=== PATIENT | female | born 1990 | race Caucasian/White ===

== ENCOUNTER 2018-10-06 19:35 | Emergency (ER) | payer MEDICAID, SELFPAY ==
[2018-10-06 19:36] VITALS: BP 126/80; PULSE 87; PULSE 88; RESP 17; TEMP 36.5; O2SAT 98; O2SAT 99; BMI 40.9
--- NOTE | 2018-10-06 20:11 | ED.VISSUMM ---
- ER Visit Summary Date of Service: 10/06/18 Chief Complaint: Medication refill History of Present Illness: The patient is a 28 F who is been out of her venlafaxine for the past 3 or 4 days. She called the counseling center yesterday for refill. She complains only of headache at this time. Physical Examination: Vital signs are unremarkable. Patient sitting upright in bed no acute distress. Heart is regular rate and rhythm. Lung sounds are clear. Abdomen is soft nontender. Patient is alert and appropriate. Test Results: [] Emergency Department Course and Treatment: Patient is currently on 225 mg of venlafaxine extended release. The medication bottles she has with her were filled on August 25. I spoke with staff members from the counseling center. They were able to verify the refills were approved and sent to [place] yesterday. The medication will be mailed to the patient. Patient be given a dose of her medication tonight and written for a 5-day supply knowing that the medication has to come to the mail. Treatment Plan: [] Disposition: Discharge Impression: Med refill This note was generated with [employer] dictation software. It may contain incorrect words, spelling, and punctuation that were not noted in review of the chart prior to signing ED Disposition - Plan for ED Patient: Disposition: Home or Assisted Living Instructions: Med Refill Prescriptions: Venlafaxine HCl [Venlafaxine HCl ER] 150 mg PO DAILY #5 cap.er.24h Venlafaxine HCl [Venlafaxine HCl ER] 75 mg PO DAILY #5 tab.er.24 Referrals: Counseling,Center [GROUP OF PHYSICIANS] -
--- NOTE | 2018-10-06 20:12 | ED.DEP ---
ED Disposition - Plan for ED Patient: Disposition: Home or Assisted Living Instructions: Med Refill Prescriptions: Venlafaxine HCl [Venlafaxine HCl ER] 225 mg PO DAILY #5 tab.er.[id number] Referrals: Counseling,Center [GROUP OF PHYSICIANS] -
[2018-10-06] MEDS: Venlafaxine XR 75 MG Capsule 225 MG PO (20:25)
[2018-10-06 20:27] VITALS: RESP 18
== END 2018-10-06 20:27 | disposition home or self-care (01) ==
LOC: ED 20:22
PROVIDERS: Emergency Provider Emergency Medicine
DX: Z76.0 Encounter for issue of repeat prescription (principal); R51 Headache
CPT/HCPCS: 99283

== ENCOUNTER 2018-12-08 06:18 | Emergency (ER) | payer MEDICAID, SELFPAY ==
[2018-12-08 06:19] VITALS: BP 138/85; PULSE 103; RESP 16; TEMP 37.2; O2SAT 97; BMI 44.3
--- NOTE | 2018-12-08 07:29 | NURSING ---
CALLED [facility]SELING [facility] PER DR GAYTAN
--- NOTE | 2018-12-08 07:42 | ED.DCSUM_ITS ---
- ER Visit Summary Date of Service: 12/08/18 Chief Complaint: Not sleeping well History of Present Illness: The patient is a [address] Edwards in the counseling center. She reports that on November 25 she was placed on trazodone and Abilify. Since that time she feels altered like I been smoking weed. States that she felt stoned all day yesterday and the evening before this. She denies any drug use. Patient does admit to being depressed. She denies any suicidal or homicidal ideation. No auditory visual hallucinations. Review of systems is negative. Physical Examination: Vitals: Stable. Afebrile. General: Well-nourished and well-developed. Head: Normocephalic atraumatic. Neck: Supple, no lymphadenopathy. No JVD. Nontender. Cardiovascular: Regular rate and rhythm. No murmurs. Respiratory: No respiratory distress. Clear to auscultation bilaterally. Abdominal: Soft, nontender, nondistended, normal bowel sounds. No guarding, rebound, or peritoneal signs. Back: Nontender. Extremities: Nontender, no edema. Skin: Normal color, no rash. Neurologic: Alert and oriented ?3. Cranial nerves II through XII are intact. Normal strength and sensation. Mental status exam: Patient appears their stated age. Good posture and grooming. Good eye contact. Normal rate, volume, and latency of speech. No suicidal or homicidal ideation. No auditory or visual hallucinations. Flow of thought is logical. Insight and judgment is fair. Emergency Department Course and Treatment: Patient has rested comfortably while here. Treatment Plan: Reviewing the patient's medications I suspect that it is the Abilify that was added that is causing her problems. She was discussed with the counseling center and is instructed to follow-up with them in 2 days for another exam. She is instructed to stop the Abilify. She is instructed to follow-up with her psychiatrist, Dr. Edwards, December 28 as previously scheduled. Return to the emergency department for any worsening symptoms. Disposition: To home in improved and stable condition. Impression: 1. Adverse medication effect. This note was generated with PostRocketation software. It may contain incorrect words, spelling, and punctuation that were not noted in review of the chart prior to signing ED Disposition - Plan for ED Patient: Instructions: DRUG REACTION, Other Referrals: Counseling,Center [GROUP OF PHYSICIANS] - 12/10/18 1:00 pm Additional Instructions: Stop Abilify as it is likely causing you to have trouble sleeping and feel out of it. Follow up with Dr. Edwards December 28 at 3:30.
--- NOTE | 2018-12-08 07:51 | NURSING ---
[facility], FOR DR GAYTAN
== END 2018-12-08 08:59 | disposition home or self-care (01) ==
PROVIDERS: Emergency Provider Emergency Medicine
DX: T50.905A Adverse effect of unspecified drugs, medicaments and biological substances, initial encounter (principal); Y92.9 Unspecified place or not applicable; F32.9 Major depressive disorder, single episode, unspecified; K51.90 Ulcerative colitis, unspecified, without complications; E03.9 Hypothyroidism, unspecified; Z79.899 Other long term (current) drug therapy; Z72.0 Tobacco use
CPT/HCPCS: 99282

== ENCOUNTER 2018-12-11 15:20 | Emergency (ER) | payer MEDICAID, SELFPAY ==
[2018-12-11] VITALS (8 sets, daily range): BP systolic 141–169; BP diastolic 83–95; PULSE 89–126; RESP 15–18; TEMP 36.6; O2SAT 97–99; BMI 42.8
[2018-12-11 15:51] LABS: Vista UDS pH Range 6
[2018-12-11 16:10] LABS: Hematocrit 41.6 % (37-47); Hemoglobin 14.1 g/dl (12.0-15.0); Mean Corpuscular Hgb 31.4 pg (27.0-32.0); Mean Corpuscular Volume 92.7 fL (81-99); Red Blood Count 4.49 M/mm3 (4.2-5.4)
[2018-12-11 16:11] LABS: Absolute Neutrophil Count 11.8 X10^3/uL (2.0-7.7); Basophil% 0.3 % (0-1); Eosinophils% 0.2 % (0-5); Lymphocyte # 3.04 X10^3/ul (4.0); Mean Corp Hgb Conc 33.9 g/gl (32-36); Mean Platelet Vol. 10.3 fl (6.2-12.0); Monocyte% 6.7 % (0-10); Neutrophil # 11.76 X10^3/uL (2.7-7.7); Neutrophil % 73.6 % (47-70); POSITIVE COUNT NO; POSITIVE DIFFERENTIAL NO; POSITIVE MORPHOLOGY NO; Platelet Count 402 K/mm3 (150-450); RBC Distribution Width CV 12.8 % (11.6-14.6); RBC Distribution Width SD 42.9 fl (35.1-43.9)
[2018-12-11 16:12] LABS: Absolute Lymphocyte Count 3.04 X10^3/ul (0.83-4.51); Basophil# 0.04 X10^3/uL; Eosinophil# 0.03 X10^3/uL; Monocyte# 1.07 X10^3/uL
--- NOTE | 2018-12-11 16:14 | ED.DCSUM_ITS ---
- ER Visit Summary Date of Service: 12/11/18 Chief Complaint: Mental health evaluation History of Present Illness: The patient is a 28 F who sees the counseling center but mother is unsure of the exact diagnosis who presents for abnormal behavior. Mother states the patient has been hallucinating, exhibiting delusional behavior and was laying on the kitchen floor crying. Patient currently is denying any complaints. She is denying any hallucinations. 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 She is on HRT and estradiol. Patient denies any other complaints. Physical Examination: Vital signs: afebrile, hemodynamically stable, no hypoxia on room air General: well nourished, well developed, in no distress Skin: warm, dry, no rash, no pallor HEENT: normocephalic and atraumatic; PERRL, EOMI, moist mucous membranes Cardiovascular: Tachycardic rate and rhythm without murmurs, no peripheral edema, 2+ pulses all distal extremities Respiratory: No increased work of breathing, lungs are clear to auscultation bilaterally, no rales, rhonchi or wheezing Abdominal: Abdomen is soft, nontender with normoactive bowel sounds, no guarding or rebound, no masses MSK: Moves all extremities, no deformities, normal strength Neuro: Awake and alert, oriented ?4. No facial droop, sensation and motor function intact and symmetric Psych: Patient is manic, smiling broadly and constantly talking, showing me all the items in her purse including every business card and explaining the origins of it, things I am her cousin, exhibits no suicidal or homicidal ideation Test Results: ] Abnormal Lab Results 12/11/18 12/11/18 12/11/18 15:45 15:45 15:45 WBC 16.0 H RBC 4.49 Hgb 14.1 Hct 41.6 MCV 92.7 MCH 31.4 MCHC 33.9 RDW 12.8 RDW Differential 42.9 Plt Count 402 MPV 10.3 Immature Gran % (Auto) 0.200 Neut % (Auto) 73.6 H Lymph % (Auto) 19.0 Banner % (Auto) 6.7 Eos % (Auto) 0.2 Baso % (Auto) 0.3 Absolute Neuts (auto) 11.8 H Absolute Lymphs (auto) 3.04 Total Counted Not Reportable Sodium 135 L Potassium 2.9 L Chloride 101 Carbon Dioxide 29.0 Anion Gap 5 BUN 7 Creatinine 1.20 H Estim Creat Clear Calc 72.94 Est GFR (MDRD) Af Amer 68 Est GFR (MDRD) Non-Af 57 L BUN/Creatinine Ratio 5.8 L Glucose 137 H Calcium 9.1 Total Bilirubin Direct Bilirubin AST ALT Alkaline Phosphatase Total Protein Albumin Globulin Serum , Qual Urine Color Urine Clarity Urine pH Ur Specific [place] Urine Protein Urine Glucose (UA) Urine Ketones Urine Occult Blood Urine Nitrite Urine Bilirubin Urine Urobilinogen Ur Leukocyte Esterase Urine RBC Urine WBC Ur Squamous Epith Cells Urine Bacteria Urine Mucus Urine Opiates Screen Urine Methadone Screen Ur Barbiturates Screen Ur Phencyclidine Scrn Ur Amphetamines Screen U Methamphetamin-MDMA U Benzodiazepines Scrn Urine Cocaine Screen U Cannabinoids Screen Ur Drug Screen Comment Ethyl Alcohol 9.0 12/11/18 12/11/18 12/11/18 15:45 15:45 15:46 WBC RBC Hgb Hct MCV MCH MCHC RDW RDW Differential Plt Count MPV Immature Gran % (Auto) Neut % (Auto) Lymph % (Auto) Banner % (Auto) Eos % (Auto) Baso % (Auto) Absolute Neuts (auto) Absolute Lymphs (auto) Total Counted Sodium Potassium Chloride Carbon Dioxide Anion Gap BUN Creatinine Estim Creat Clear Calc Est GFR (MDRD) Af Amer Est GFR (MDRD) Non-Af BUN/Creatinine Ratio Glucose Calcium Total Bilirubin 0.40 Direct Bilirubin 0.09 AST 27 ALT 42 Alkaline Phosphatase 73 Total Protein 8.6 H Albumin 4.0 Globulin 4.6 H Serum , Qual Cancelled Urine Color Urine Clarity Urine pH Ur Specific [place] Urine Protein Urine Glucose (UA) Urine Ketones Urine Occult Blood Urine Nitrite Urine Bilirubin Urine Urobilinogen Ur Leukocyte Esterase Urine RBC Urine WBC Ur Squamous Epith Cells Urine Bacteria Urine Mucus Urine Opiates Screen NEGATIVE Urine Methadone Screen NEGATIVE Ur Barbiturates Screen NEGATIVE Ur Phencyclidine Scrn NEGATIVE Ur Amphetamines Screen NEGATIVE U Methamphetamin-MDMA POSITIVE H U Benzodiazepines Scrn NEGATIVE Urine Cocaine Screen NEGATIVE U Cannabinoids Screen NEGATIVE Ur Drug Screen Comment Ethyl Alcohol 12/11/18 19:00 WBC RBC Hgb Hct MCV MCH MCHC RDW RDW Differential Plt Count MPV Immature Gran % (Auto) Neut % (Auto) Lymph % (Auto) Banner % (Auto) Eos % (Auto) Baso % (Auto) Absolute Neuts (auto) Absolute Lymphs (auto) Total Counted Sodium Potassium Chloride Carbon Dioxide Anion Gap BUN Creatinine Estim Creat Clear Calc Est GFR (MDRD) Af Amer Est GFR (MDRD) Non-Af BUN/Creatinine Ratio Glucose Calcium Total Bilirubin Direct Bilirubin AST ALT Alkaline Phosphatase Total Protein Albumin Globulin Serum , Qual Urine Color Yellow Urine Clarity Clear Urine pH 6.5 Ur Specific [place] 1.015 Urine Protein 15 H Urine Glucose (UA) Normal Urine Ketones 5 H Urine Occult Blood 10 H Urine Nitrite Negative Urine Bilirubin Negative Urine Urobilinogen Normal Ur Leukocyte Esterase Negative Urine RBC 0-5 SEEN Urine WBC 0-5 SEEN Ur Squamous Epith Cells 5-10 SEEN Urine Bacteria 1+ Urine Mucus 1+ Urine Opiates Screen Urine Methadone Screen Ur Barbiturates Screen Ur Phencyclidine Scrn Ur Amphetamines Screen U Methamphetamin-MDMA U Benzodiazepines Scrn Urine Cocaine Screen U Cannabinoids Screen Ur Drug Screen Comment Ethyl Alcohol Medications Given Discontinued Medications Lorazepam (Ativan) 1 mg PO X1 ONE Stop: 12/11/18 16:14 Last Admin: 12/11/18 16:39 Dose: 1 mg Documented by: VJ Potassium Chloride (K-Dur) 60 meq PO X1 ONE Stop: 12/11/18 17:07 Last Admin: 12/11/18 18:47 Dose: 60 meq Documented by: VJ Emergency Department Course and Treatment: Patient was given Ativan to help calm her down, as she is manic. Medical screening exam was performed. Patient was noted to have hypokalemia of 2.9. She was given oral replacement. Patient's tox screen was positive for methamphetamines/MDMA, but patient is on trazodone which can cause a false positive. The counseling center does not think the patient is actually using amphetamines or MDMA. Thus this is likely a false positive. Alcohol screen was negative. EKG showed a sinus rhythm with a prolonged QTc interval. Patient was not given any medications to prolong her QTc interval in the emergency department. test was not performed, as patient is male to female transgender. Patient was medically cleared for further psychiatric evaluation and will require inpatient treatment for her acute psychosis and mackenzie. She was accepted for admission at [facility] for further psychiatric management. Treatment Plan: [] Disposition: [] Impression: Acute psychosis, mackenzie This note was generated with [employer] dictation software. It may contain incorrect words, spelling, and punctuation that were not noted in review of the chart prior to signing ED Disposition - Plan for ED Patient: Referrals: Care Physician,No Primary [Primary Care Provider] -
[2018-12-11 16:18] LABS: Anion Gap 5 (5-15); BUN 7 mg/dL (7-18); BUN/Creat Ratio 5.8 RATIO (10-20); Calcium,Total 9.1 mg/dL (8.5-10.1); Chloride 101 mmol/L (98-107); EST Glomerular Filtration Rate 57 mL/min (>60); Est Glom Filt Rate - Afr Amer 68 mL/min (>60); Estimated Creatinine Clearance 72.94 ml/min; Glucose 137 mg/dL (74-106); Potassium 2.9 mmol/L (3.5-5.1); Sodium Level 135 mmol/L (136-145)
[2018-12-11 16:27] LABS: Amphetamine Urine VISTA NEGATIVE (<1000 ng/mL); Barbiturate Urine VISTA NEGATIVE (< 200 ng/mL); Benzodiazepine Urine VISTA NEGATIVE (< 200 ng/mL); Cocaine Urine VISTA NEGATIVE (< 300 ng/mL); Ecstacy Urine VISTA POSITIVE (< 500 ng/mL); Methadone Urine VISTA NEGATIVE (< 300 ng/mL); PCP Urine VISTA NEGATIVE (< 25 ng/mL); THC Urine VISTA NEGATIVE (< 50 ng/mL)
[2018-12-11] MEDS: LORazepam 1 MG Tablet PO (16:39)
--- NOTE | 2018-12-11 17:23 | ED.RN ---
JONATHAN WITH CRISIS WILL BE HERE WITHIN A HALF HOUR TO EVALUATE PT
--- NOTE | 2018-12-11 18:26 | ED.RN ---
JONATHAN WITH CRISIS IS HERE
--- NOTE | 2018-12-11 18:55 | EKG12_ITS ---
Test Reason : MENTAL HEALTH Blood Pressure : / mmHG Vent. Rate : 102 BPM Atrial Rate : 102 BPM P-R Int : 128 ms QRS Dur : 082 ms QT Int : 384 ms P-R-T Axes : 047 053 058 degrees QTc Int : 500 ms Sinus tachycardia Otherwise normal ECG Confirmed by LIBBY PITT ([id number]), content editor UQAN AREVALO ([id number]) on 12/16/2018 2:09:10 PM Referred By: DR LUNDBERG Confirmed By:LIBBY PITT
[2018-12-11 19:20] LABS: AST(SGOT) 27 U/L (15-37); Alanine Aminotransfer ALT/SGPT 42 U/L (13-56); Alkaline Phosphatase 73 U/L (45-117); Bilirubin, Direct 0.09 mg/dL (0.00-0.30); Globulin 4.6 g/dL (2.2-4.2); Protein, Total 8.6 g/dL (6.4-8.2)
[2018-12-11 19:30] LABS: Color, Urine Yellow (Yellow); Glucose, Dipstick Normal (Normal); Ketone-Dipstick 5 mg/dl (Negative); Leukocyte Esterase-Dipstick Negative /ul (Negative); Nitrite-Dipstick Negative (Negative); Occult Blood-Urine 10 /ul (Negative); Protein-Dipstick 15 mg/dl (Negative); Specific Gravity, Urine 1.015 (1.002-1.030); Urine Bilirubin Dipstick Negative (Negative); Urine Clarity Clear (Clear); Urine Urobilinogen Normal (Normal); Urine pH 6.5 (5.0 - 8.0)
[2018-12-11 20:43] LABS: Bacteria 1+ /hpf (None Seen); Mucous, Urine 1+ /hpf (<or=2+); Red Blood Cells-Urine 0-5 SEEN /hpf (0-5); Squamous Epithelial Cells - UA 5-10 SEEN /hpf (5-10); White Blood Cells 0-5 SEEN /hpf (0-5)
--- NOTE | 2018-12-11 21:58 | ED.RN ---
ATTEMPTED TO CALL REPORT AFTER 2154 PER JONATHAN , THE CRISIS COUNSELOR AFTER SHE HAD CALLED TRANSFER LINE. RN AT [facility] UNABLE TO TAKE REPORT DUE TO NOT HAVING PATIENT A BED ASSIGNED AND WILL NOTIFY CHARGE NURSE AND THEN CALL OUR ER WITH BED NUMBER AND REPORT
== END 2018-12-11 22:27 ==
LOC: ED 16:25
PROVIDERS: Emergency Provider Emergency Medicine
DX: F23 Brief psychotic disorder (principal); F31.9 Bipolar disorder, unspecified; F15.90 Other stimulant use, unspecified, uncomplicated; E66.9 Obesity, unspecified; Z72.0 Tobacco use
CPT/HCPCS: 80048; 80076; 80307; 80320; 81001; 84703; 85025; 93005; 99285; G0480

== ENCOUNTER 2018-12-22 11:32 | Emergency (ER) | payer MEDICAID, SELFPAY ==
[2018-12-11 15:21] VITALS: BMI 42.8
[2018-12-22 11:33] VITALS: BP 148/71; PULSE 104; RESP 16; TEMP 36.1; O2SAT 97; BMI 41.5
--- NOTE | 2018-12-22 11:51 | CT_ITS ---
STUDY: CT ABDOMEN AND PELVIS WITH CONTRAST REASON FOR EXAM: Female, 28 years old. Epigastric pain. RADIATION DOSAGE (If Supplied By Facility): CTDIvol = ( 20.46 ) mGy, DLP = ( 1924.51 ) mGycm TECHNIQUE: Transaxial images were obtained from the dome of the diaphragm to the symphysis pubis with oral contrast. 100ML ml of Isovue 300 contrast was administered. Sagittal and coronal images were reconstructed. Individualized dose optimization techniques were used for this CT. COMPARISON: None. FINDINGS: Body wall soft tissues: Bilateral gynecomastia may be associated with hormone therapy in this biologically male gender individual. Reportedly, transgender. Osseous structures: Slight scoliosis. Inferior chest: No acute process. Hepatobiliary: Hepatic steatosis with evidence of mild hepatomegaly, craniocaudal right liver approximately 18.5 cm. Normal gallbladder and biliary tree. Pancreas: No acute process. Spleen: Normal. Adrenal glands: Normal. Urogenital: Normal appearance of the kidneys, collecting systems, ureters, urinary bladder, prostate and seminal vesicles. Scrotal contents exhibit no acute process. Symmetrical diminished size of the testes. Pelvic floor and sidewalls and retroperitoneum: No mass or adenopathy. Vasculature: No acute process. Stomach: No acute process. Small bowel and mesentery: No acute process. Large bowel: Normal appendix. Unremarkable large bowel and rectum. Free fluid or free air: None. CT/Abdomen/Pelvis WITH Contrast IMPRESSION: Hepatic steatosis with mild hepatomegaly. No other acute abdominopelvic process is evident. Electronically Signed: Coy Barrientos MD at 14:14 EDT Tel , Service support ,
--- NOTE | 2018-12-22 11:52 | EKG12_ITS ---
Test Reason : ABD PAIN Blood Pressure : / mmHG Vent. Rate : 103 BPM Atrial Rate : 103 BPM P-R Int : 128 ms QRS Dur : 080 ms QT Int : 366 ms P-R-T Axes : 026 028 046 degrees QTc Int : 479 ms Sinus tachycardia Otherwise normal ECG Confirmed by FRANC VAZQUEZ, KAITLIN ([id number]), editor department QUAN AREVALO ([id number]) on 12/23/2018 12:27:59 PM Referred By: HUBERT Confirmed By:KAITLIN BRUNER MD
--- NOTE | 2018-12-22 11:55 | ED.VISSUMM ---
- ER Visit Summary Date of Service: 12/22/18 Chief Complaint: Abdominal pain History of Present Illness: The patient is a 28 F reports mild abdominal pain yesterday that worsened today. She points to the periumbilical region. She reports nausea but no vomiting. She had diarrhea a few days ago with some blood on the paper only but states she is been constipated since that time. Patient does have a history of ulcerative colitis. She states is been several years since her last colonoscopy. Patient was recently admitted to [facility] and has had multiple medication changes recently. Past history significant for hypothyroidism ulcerative colitis, male to female transgender. Physical Examination: Vital signs unremarkable. Patient sitting upright in bed no acute distress. She has a flat affect but answers questions appropriately. Heart is regular rate and rhythm. Lung sounds are clear. Abdomen is soft with mild diffuse tenderness. No guarding or rebound. Hypoactive bowel sounds are present. Test Results: CBC and chemistry studies unremarkable. LFTs normal. Lipase normal. Urine normal. EKG is sinus at 103 with no acute ischemia. Normal QTC. CT abdomen pelvis shows hepatic steatosis with no acute findings. Emergency Department Course and Treatment: Patient was given IV fluids. Morphine and Zofran were ordered but patient declined these. Test results discussed with patient and mother at bedside. Treatment Plan: [] Disposition: Discharge Impression: Abdominal pain, uncertain etiology This note was generated with [employer] dictation software. It may contain incorrect words, spelling, and punctuation that were not noted in review of the chart prior to signing ED Disposition - Plan for ED Patient: Disposition: Home or Assisted Living Instructions: Abdominal Pain Referrals: Colby Andrea MD [STAFF PHYSICIAN] - As Needed
[2018-12-22] MEDS: Ondansetron 4 MG/2 ML Vial IV (12:14)
[2018-12-22] MEDS: 0.9% Normal Saline 1,000 ML 150 ML IV (12:15)
[2018-12-22 12:56] LABS: Color, Urine Yellow (Yellow); Glucose, Dipstick Normal (Normal); Ketone-Dipstick 5 mg/dl (Negative); Leukocyte Esterase-Dipstick Negative /ul (Negative); Nitrite-Dipstick Negative (Negative); Occult Blood-Urine Negative /ul (Negative); Protein-Dipstick Negative (Negative); Specific Gravity, Urine 1.015 (1.002-1.030); Urine Bilirubin Dipstick Negative (Negative); Urine Clarity Sl. Cloudy (Clear); Urine Urobilinogen Normal (Normal); Urine pH 6.5 (5.0 - 8.0)
[2018-12-22 12:58] LABS: Bacteria 1+ /hpf (None Seen); Mucous, Urine 1+ /hpf (<or=2+); Red Blood Cells-Urine 0-5 SEEN /hpf (0-5); Squamous Epithelial Cells - UA 0-5 SEEN /hpf (5-10); White Blood Cells 0-5 SEEN /hpf (0-5)
[2018-12-22 12:59] LABS: Absolute Lymphocyte Count 2.21 X10^3/ul (0.83-4.51); Absolute Neutrophil Count 7.2 X10^3/uL (2.0-7.7); Basophil# 0.05 X10^3/uL; Basophil% 0.5 % (0-1); Eosinophil# 0.09 X10^3/uL; Eosinophils% 0.9 % (0-5); Hematocrit 41.5 % (37-47); Lymphocyte # 2.21 X10^3/ul (4.0); Lymphocyte % 21.3 % (19-41); Mean Corp Hgb Conc 33.7 g/gl (32-36); Mean Corpuscular Hgb 31.5 pg (27.0-32.0); Mean Corpuscular Volume 93.3 fL (81-99); Mean Platelet Vol. 10.8 fl (6.2-12.0); Monocyte# 0.76 X10^3/uL; Monocyte% 7.3 % (0-10); Neutrophil # 7.24 X10^3/uL (2.7-7.7); Neutrophil % 69.8 % (47-70); Platelet Count 316 K/mm3 (150-450); RBC Distribution Width CV 13.2 % (11.6-14.6); RBC Distribution Width SD 44.6 fl (35.1-43.9); Red Blood Count 4.45 M/mm3 (4.2-5.4); White Blood Count 10.4 K/mm3 (4.4-11.0)
[2018-12-22 13:02] LABS: POSITIVE COUNT NO; POSITIVE DIFFERENTIAL NO; POSITIVE MORPHOLOGY NO
[2018-12-22 13:13] LABS: AST(SGOT) 36 U/L (15-37); Alanine Aminotransfer ALT/SGPT 69 U/L (13-56); Albumin, Serum 3.7 g/dL (3.2-5.0); Alkaline Phosphatase 64 U/L (45-117); Anion Gap 5 (5-15); BUN 9 mg/dL (7-18); Bilirubin, Direct < 0.05 mg/dL (0.00-0.30); Calcium,Total 9.1 mg/dL (8.5-10.1); Chloride 104 mmol/L (98-107); EST Glomerular Filtration Rate 70 mL/min (>60); Est Glom Filt Rate - Afr Amer 85 mL/min (>60); Estimated Creatinine Clearance 87.53 ml/min; Globulin 4.1 g/dL (2.2-4.2); Glucose 120 mg/dL (74-106); Lipase 78 U/L (73-393); Potassium 3.8 mmol/L (3.5-5.1); Protein, Total 7.8 g/dL (6.4-8.2); Sodium Level 135 mmol/L (136-145)
== END 2018-12-22 15:19 | disposition home or self-care (01) ==
PROVIDERS: Emergency Provider Emergency Medicine
DX: R10.9 Unspecified abdominal pain (principal); R11.0 Nausea; K59.00 Constipation, unspecified; K76.0 Fatty (change of) liver, not elsewhere classified; Z72.0 Tobacco use; E03.9 Hypothyroidism, unspecified; F64.8 Other gender identity disorders
CPT/HCPCS: 74177; 80048; 80076; 81001; 83690; 85025; 93005; 99283; J7030; A4216; J2405

== ENCOUNTER 2018-12-26 15:55 | Emergency (ER) | payer MEDICAID, SELFPAY ==
[2018-12-26 15:57] VITALS: BP 135/70; PULSE 116; RESP 15; TEMP 36.6; O2SAT 97; BMI 41.4
[2018-12-26 16:45] LABS: Absolute Lymphocyte Count 1.97 X10^3/ul (0.83-4.51); Absolute Neutrophil Count 10.5 X10^3/uL (2.0-7.7); Basophil# 0.04 X10^3/uL; Basophil% 0.3 % (0-1); Eosinophil# 0.08 X10^3/uL; Eosinophils% 0.6 % (0-5); Hematocrit 40.9 % (37-47); Hemoglobin 13.8 g/dl (12.0-15.0); Lymphocyte # 1.97 X10^3/ul (4.0); Lymphocyte % 14.8 % (19-41); Mean Corp Hgb Conc 33.7 g/gl (32-36); Mean Corpuscular Hgb 31.4 pg (27.0-32.0); Mean Platelet Vol. 10.9 fl (6.2-12.0); Monocyte# 0.68 X10^3/uL; Monocyte% 5.1 % (0-10); Neutrophil # 10.52 X10^3/uL (2.7-7.7); POSITIVE COUNT NO; POSITIVE DIFFERENTIAL NO; POSITIVE MORPHOLOGY NO; Platelet Count 317 K/mm3 (150-450); RBC Distribution Width CV 12.8 % (11.6-14.6); RBC Distribution Width SD 43.4 fl (35.1-43.9); White Blood Count 13.3 K/mm3 (4.4-11.0)
[2018-12-26 16:54] LABS: Anion Gap 8 (5-15); BUN 8 mg/dL (7-18); BUN/Creat Ratio 8.6 RATIO (10-20); Calcium,Total 9.1 mg/dL (8.5-10.1); Chloride 106 mmol/L (98-107); Creatinine, Serum 0.93 mg/dL (0.55-1.02); EST Glomerular Filtration Rate 76 mL/min (>60); Est Glom Filt Rate - Afr Amer 92 mL/min (>60); Estimated Creatinine Clearance 97.39 ml/min; Glucose 152 mg/dL (74-106); Potassium 3.8 mmol/L (3.5-5.1); Sodium Level 140 mmol/L (136-145)
--- NOTE | 2018-12-26 16:59 | ED.VISSUMM ---
- ER Visit Summary Date of Service: 12/26/18 Chief Complaint: Auditory hallucinations History of Present Illness: The patient is a 28 F who presents with auditory hallucinations that have been intermittent over the past 3 days. Patient was recently hospitalized at [facility] for auditory hallucinations. Patient has had medications adjusted but is still having auditory hallucinations. Patient states the voices are not telling her to do anything. She denies any recent fevers or chills. Patient denies any chest pain or shortness of breath. Physical Examination: Vital signs are stable. Patient is afebrile. Patient is in no acute distress. Oral mucosa is pink and moist. Neck is supple. Trachea is midline. There is no JVD noted. Heart was regular rate and rhythm. Lungs are clear and equal bilaterally. Abdomen is soft. Bowel sounds are normal. There is no tenderness. Cranial nerves II through XII are intact. There are no focal motor or sensory deficits noted. Patient admits to auditory hallucinations but denies any suicidal or homicidal ideations. Test Results: Basic labs were obtained. There is a mild leukocytosis of 13.3. The remaining labs are within normal limits. Urine tox screen was obtained and was negative. Serum alcohol level was obtained and was normal. Emergency Department Course and Treatment: Social work was then to evaluate the patient. The discussed the case with crisis and patient does not meet criteria for inpatient treatment at this time. Patient will be discharged home to continue her current medications. Patient is instructed to follow-up with her psychiatrist in 2 to 3 days. Patient was instructed to return if worse in any way. Patient and her mother understood and were agreeable with the plan. All questions were answered. Disposition: Discharge home Impression: Auditory hallucinations This note was generated with [employer] dictation software. It may contain incorrect words, spelling, and punctuation that were not noted in review of the chart prior to signing ED Disposition - Plan for ED Patient: Disposition: Home or Assisted Living Diagnosis: Auditory hallucinations Instructions: Depression Referrals: Vinod Edwards NP-C [Primary Care Provider] - 2 Days
[2018-12-26 17:28] LABS: Internal QC Validated? YES +Cl - CLEAR BKGD; Pregnancy, Serum, hCG Quali. NEGATIVE Negative
[2018-12-26 17:55] LABS: Amphetamine Urine VISTA NEGATIVE (<1000 ng/mL); Barbiturate Urine VISTA NEGATIVE (< 200 ng/mL); Benzodiazepine Urine VISTA NEGATIVE (< 200 ng/mL); Cocaine Urine VISTA NEGATIVE (< 300 ng/mL); Ecstacy Urine VISTA NEGATIVE (< 500 ng/mL); Methadone Urine VISTA NEGATIVE (< 300 ng/mL); PCP Urine VISTA NEGATIVE (< 25 ng/mL); THC Urine VISTA NEGATIVE (< 50 ng/mL); Vista UDS pH Range 7
--- NOTE | 2018-12-26 18:04 | CM.ED ---
Social Work Consult: Hallucinations Informant: Dr. Xiong Chief Complaint: Patient reporting to have an increase in hearing voices. Patient mother, Lynsey reporting to be concerned about patient risk of self harm. Marital/Social History: Single Living Situation: Lives with mother, a cat and a dog in a private home. Support/Resources: Patient main support is patient mother. Patient denies any further supports. Education: High school diploma Mental Health Treatment/History: Patient reporting to have a diagnosis of depression. Patient sees a counselor at [facility] 1-2 times a month as well as follows with a psychiatrist with [facility]. Patient reporting that patient had a recent stay at [facility] where medication were changed due to patient hallucinations. Patient stating that medication change at [facility] did not help patient, but made things worse. Patient stating to have seen psychiatrist yesterday and to have had a medication change and this was helping. Patient denies any suicidal or homicidal thoughts at this time, but is reporting a significant increase in hallucinations at this time. Patient reporting that the voices are both positive and negative. Patient reporting to have a history of self-harming (cutting) and to now have a rubber band that patient pulls when patient has thoughts of cutting. Patient did pull rubber band often during conversation with this social service liaison. Abuse Issues: Unable to fully assess whether or not patient has any history or current physical, emotional, and sexual abuse as patient only response was I don't think so. This social service liaison attempted to inquire further with open-ended questions, patient appeared to be drifting off in thought(s) and unable to focus on this social service liaison. Substance Abuse Hx: Patient denies any substance abuse. Appearance: Patient appearing disheveled and depressed. Patient would often loose thought process mid sentence during conversation with this social service liaison. Patient would often stay I am not sure or I don't remember during conversation with this social service liaison. General Comments: Patient mother stating to be concerned about patient behavior over the past three days. Patient mother stating that prior to the past three days patient would be either watching T.V, playing on phone or tablet and that patient would make noises. Patient mom stating that patient now has been very quiet and that the house has been still. Patient mother voicing to be concerned that the voices in patient mind are being so loud that patient is not able to think or function. Patient mom concerned about patient safety and reporting that patient was playing with a superintendent circus earlier today and catching hairs on patient arm on fire. Patient did confirm this behavior stating that patient wanted to remove the hairs on patients arms. This social service liaison did ask patient mother to leave the room for some of the assessment, patient did become visibly more relaxed with patient mother outside of the room. This social service liaison noting this with patient. This social service liaison broaching topic of patient relationship with patient mother, Patient stating to have a positive relationship but to not be sure if patient trust patient mother anymore. Patient unable/unwilling to elaborate on why patient is questioning trust with mother at this time. Collaborating with Dr. Xiong. Dr. Xiong is recommending inpatient psychiatric placement with possible options of changing medications due to patient increase in hallucinations. It is unclear if a good safety plan can be set up at this time. Patient mother identifying risk of patient returning to home and patient reluctant/unable to engage in conversation about safety plan. Patient made minimal eye contact with this social service liaison during assessment and did not initiate conversation. Patient did stating that patient did not want to return to [facility]. Telephone all to [facility]. Referral placed. Pending response at this time. PLAN: Transfer to an inpatient psychiatric facility pending approval. REKHA Powell
[2018-12-26] MEDS: Acetaminophen 500 MG Tablet 1000 MG PO (19:15)
[2018-12-26 19:20] VITALS: BP 132/77; PULSE 98; RESP 16
--- NOTE | 2018-12-26 20:10 | CM.ED ---
Social Work Telephone call from [facility], they are unable to accept patient. [facility] to [facility] Referral placed. Pending response at this time. Aminata DIAS, REKHA
--- NOTE | 2018-12-26 20:47 | CM.ED ---
Social Work Telephone call from [facility], patient denied at this time due to no active suicidal or homicidal thoughts. Even with patient hallucinations, will not accept. Collaborating with Dr. Xiong. Plan is to safety plan patient home. Met with patient and patient family in room. This clinical social work aide communicating above information. Plan is for patient mom to keep checking in with patient throughout the remainder of the evening. Patient mom also planning to contact [facility] on Friday to set up a counseling appointment as patient does not have one set up at this time. This clinical social work aide also providing patient and patient mother with number for crisis. Support provided. Aminata DIAS, REKHA
[2018-12-26 21:05] VITALS: BP 130/67; PULSE 97; RESP 16; O2SAT 98
== END 2018-12-26 21:06 | disposition home or self-care (01) ==
PROVIDERS: Emergency Provider Emergency Medicine; Family Provider Nurse Practitioner Family; PCP Nurse Practitioner Family
DX: R44.0 Auditory hallucinations (principal); E03.9 Hypothyroidism, unspecified; F32.9 Major depressive disorder, single episode, unspecified
CPT/HCPCS: 80048; 80307; 80320; 84703; 85025; 99283; G0480

== ENCOUNTER 2019-01-02 22:22 | Emergency (ER) | payer MEDICAID, SELFPAY ==
[2019-01-02 22:22] VITALS: BP 133/84; PULSE 92; RESP 16; TEMP 36.6; O2SAT 100; BMI 37.8
--- NOTE | 2019-01-03 01:04 | ED.VISSUMM ---
- ER Visit Summary Date of Service: 01/03/19 Chief Complaint: Auditory hallucinations History of Present Illness: The patient is a [address] of underlying psychiatric disorder with anxiety and depression. Patient recently was admitted to [facility] in [place] about 2 to 3 weeks ago. Recently had her medications changed. Mom states she is having auditory hallucinations today. She is more depressed. She has had prior suicide attempts. Patient will specifically say if she is suicidal at this time. Denies any attempt currently. Physical Examination: Young female no acute distress. Vital signs stable afebrile. H EENT exam unremarkable atraumatic pupils round reactive light. No smell of alcohol. Neck nontender no lymphadenopathy. Lungs clear to auscultation bilaterally. Heart regular rhythm no murmur. Abdomen soft and nontender. Normal bowel sounds no peritoneal signs. Patient moving all 4 extremities. Neurovascular intact. Neurologically she is awake she is alert she does answer questions and follows commands. Test Results: White count is elevated at 19,800 she has had prior elevated white counts before. Normal hemoglobin. No bands. Her other labs are currently pending will be checked out to the overnight physician. Emergency Department Course and Treatment: Patient will undergo ED mental health screening labs. Have a crisis evaluation. Currently at 01:50 a.m. the patient is resting comfortably. Labs are pending. Treatment Plan: Pending crisis evaluation. Disposition: Patient turned over the overnight physician. I will check the rest of her labs and discuss with crisis after their evaluation. Impression: Acute exacerbation of underlying psychiatric illness Auditory hallucinations History of depression and anxiety This note was generated with [employer] dictation software. It may contain incorrect words, spelling, and punctuation that were not noted in review of the chart prior to signing ED Disposition - Plan for ED Patient: Referrals: Vinod Edwards, REAGAN-C [Primary Care Provider] -
[2019-01-03 01:43] LABS: Absolute Lymphocyte Count 3.09 X10^3/ul (0.83-4.51); Absolute Neutrophil Count 15.4 X10^3/uL (2.0-7.7); Basophil# 0.04 X10^3/uL; Basophil% 0.2 % (0-1); Eosinophils% 0.5 % (0-5); Hematocrit 44.7 % (37-47); Hemoglobin 15.1 g/dl (12.0-15.0); Lymphocyte # 3.09 X10^3/ul (4.0); Lymphocyte % 15.6 % (19-41); Mean Corp Hgb Conc 33.8 g/gl (32-36); Mean Corpuscular Hgb 30.8 pg (27.0-32.0); Mean Corpuscular Volume 91.2 fL (81-99); Mean Platelet Vol. 11.5 fl (6.2-12.0); Monocyte# 1.13 X10^3/uL; Monocyte% 5.7 % (0-10); Neutrophil # 15.39 X10^3/uL (2.7-7.7); Neutrophil % 77.7 % (47-70); POSITIVE COUNT NO; POSITIVE DIFFERENTIAL NO; POSITIVE MORPHOLOGY NO; Platelet Count 356 K/mm3 (150-450); RBC Distribution Width CV 13.1 % (11.6-14.6); RBC Distribution Width SD 43.2 fl (35.1-43.9); White Blood Count 19.8 K/mm3 (4.4-11.0)
[2019-01-03 01:49] LABS: Internal QC Validated? YES +Cl - CLEAR BKGD; Pregnancy, Serum, hCG Quali. NEGATIVE Negative
[2019-01-03 01:54] LABS: Anion Gap 8 (5-15); BUN 13 mg/dL (7-18); BUN/Creat Ratio 11.6 RATIO (10-20); Calcium,Total 9.6 mg/dL (8.5-10.1); Chloride 102 mmol/L (98-107); Creatinine, Serum 1.12 mg/dL (0.55-1.02); EST Glomerular Filtration Rate 61 mL/min (>60); Est Glom Filt Rate - Afr Amer 74 mL/min (>60); Glucose 102 mg/dL (74-106); Potassium 3.7 mmol/L (3.5-5.1); Sodium Level 136 mmol/L (136-145)
[2019-01-03 02:03] LABS: Alcohol, Blood (Medical)-Serum < 3.0 mg/dL
[2019-01-03 02:19] VITALS: BP 137/92; PULSE 94; RESP 16; O2SAT 98
[2019-01-03 02:39] LABS: Amphetamine Urine VISTA NEGATIVE (<1000 ng/mL); Barbiturate Urine VISTA NEGATIVE (< 200 ng/mL); Benzodiazepine Urine VISTA NEGATIVE (< 200 ng/mL); Cocaine Urine VISTA NEGATIVE (< 300 ng/mL); Ecstacy Urine VISTA NEGATIVE (< 500 ng/mL); Methadone Urine VISTA NEGATIVE (< 300 ng/mL); PCP Urine VISTA NEGATIVE (< 25 ng/mL); THC Urine VISTA NEGATIVE (< 50 ng/mL); Vista UDS pH Range 5
--- NOTE | 2019-01-03 02:42 | ED.RN ---
KASEY FROM CRISIS IS ON HIS WAY TO SEE THIS PT
[2019-01-03 04:16] VITALS: RESP 16
== END 2019-01-03 04:21 | disposition home or self-care (01) ==
PROVIDERS: Emergency Provider Emergency Medicine; Family Provider Nurse Practitioner Family; PCP Nurse Practitioner Family
DX: R44.0 Auditory hallucinations (principal); F32.9 Major depressive disorder, single episode, unspecified; F41.9 Anxiety disorder, unspecified; Z72.0 Tobacco use; Z79.899 Other long term (current) drug therapy
CPT/HCPCS: 80048; 80307; 80320; 84703; 85025; 99282; G0480

== ENCOUNTER 2019-01-18 19:01 | Emergency (ER) | payer MEDICAID, SELFPAY ==
[2019-01-18 19:02] VITALS: BP 133/81; PULSE 83; RESP 19; TEMP 36.2; O2SAT 97; BMI 37.3
--- NOTE | 2019-01-18 20:34 | CM.ED ---
Social Work Patient sent to ED by counseling center. Crisis already following and therefore will continue to follow with resource/placement needs. Aminata Johns WALL TAPER HELPER, REKHA
[2019-01-18 21:54] LABS: Amphetamine Urine VISTA NEGATIVE (<1000 ng/mL); Barbiturate Urine VISTA NEGATIVE (< 200 ng/mL); Benzodiazepine Urine VISTA NEGATIVE (< 200 ng/mL); Cocaine Urine VISTA NEGATIVE (< 300 ng/mL); Ecstacy Urine VISTA NEGATIVE (< 500 ng/mL); Methadone Urine VISTA NEGATIVE (< 300 ng/mL); PCP Urine VISTA NEGATIVE (< 25 ng/mL); THC Urine VISTA NEGATIVE (< 50 ng/mL); Vista UDS pH Range 5
[2019-01-18 21:58] LABS: Absolute Lymphocyte Count 3.33 X10^3/uL (0.83-4.51); Absolute Neutrophil Count 8.2 X10^3/uL (2.0-7.7); Basophil# 0.06 X10^3/uL; Basophil% 0.5 % (0-1); Eosinophil# 0.11 X10^3/uL; Eosinophils% 0.9 % (0-5); Hematocrit 41.2 % (37-47); Hemoglobin 13.7 g/dL (12.0-15.0); Lymphocyte # 3.33 X10^3/ul (4.0); Lymphocyte % 26.3 % (19-41); Mean Corp Hgb Conc 33.3 g/dL (32-36); Mean Corpuscular Hgb 31.6 pg (27.0-32.0); Mean Corpuscular Volume 94.9 fL (81-99); Mean Platelet Vol. 11.1 fl (6.2-12.0); Monocyte% 7.1 % (0-10); NRBC Flagged by Analyzer 0 % (0-5); Neutrophil # 8.24 X10^3/uL (2.7-7.7); Neutrophil % 64.9 % (47-70); Platelet Count 302 K/mm3 (150-450); RBC Distribution Width CV 12.5 % (11.6-14.6); RBC Distribution Width SD 43.4 fl (35.1-43.9); Red Blood Count 4.34 M/mm3 (4.2-5.4); White Blood Count 12.7 K/mm3 (4.4-11.0)
[2019-01-18 22:09] LABS: Internal QC Validated? YES +Cl - CLEAR BKGD; Pregnancy, Serum, hCG Quali. NEGATIVE Negative
[2019-01-18 22:15] LABS: AST(SGOT) 12 U/L (15-37); Alanine Aminotransfer ALT/SGPT 27 U/L (13-56); Albumin, Serum 3.6 g/dL (3.2-5.0); Alkaline Phosphatase 70 U/L (45-117); Anion Gap 7 (5-15); BUN 12 mg/dL (7-18); BUN/Creat Ratio 11.8 RATIO (10-20); Calcium,Total 9.3 mg/dL (8.5-10.1); Chloride 104 mmol/L (98-107); Creatinine, Serum 1.02 mg/dL (0.55-1.02); EST Glomerular Filtration Rate 68 mL/min (>60); Est Glom Filt Rate - Afr Amer 82 mL/min (>60); Estimated Creatinine Clearance 93.91 ml/min; Globulin 3.7 g/dL (2.2-4.2); Glucose 106 mg/dL (74-106); Potassium 3.6 mmol/L (3.5-5.1); Protein, Total 7.3 g/dL (6.4-8.2); Sodium Level 141 mmol/L (136-145)
--- NOTE | 2019-01-18 22:49 | CT_ITS ---
STUDY: CT BRAIN WITHOUT CONTRAST REASON FOR EXAM: Female, 29 years old. Confusion RADIATION DOSAGE (If Supplied By Facility): CTDIvol = ( 44.99 ) mGy, DLP = ( 796.11 ) mGycm TECHNIQUE: Transaxial CT imaging of the brain was performed without administration of intravenous contrast material. Individualized dose optimization techniques were used for this CT. COMPARISON: No relevant priors. FINDINGS: Normal soft tissue structures. Normal calvarium. Normal size ventricles and extra-axial spaces for the patient's age. Normal white matter tracts of the cerebral hemispheres. Normal basal ganglia and thalami. Normal brainstem. Normal cerebellum. There is no intracranial hemorrhage. There are no findings of an acute ischemic infarction. Normal visualized paranasal sinuses. CT/Brain/Head without Contrast IMPRESSION: Normal unenhanced CT scan of the brain. Electronically Signed: Jazzy Morgan, at 0:50 EDT Tel , Service support ,
--- NOTE | 2019-01-18 22:50 | ED.DCSUM_ITS ---
History of Present Illness Chief Complaint: Mental Health Detail of Chief Complaint: not acting right Informant: Patient, Family - mother Onset: Month(s) - 1, approximately Timing: Continuous Current Severity: Severe Maximum Severity: Severe Associated Symptoms: Confusion, Auditory Hallucinations - voices according to mother, from what pt told her, - - not speaking Narrative: Patient was recently admitted to [facility] for psychiatric reasons and discharged on a different medication regimen which she has been compliant with since mother is giving them to her. Mother states however since she has been home from the hospital which has been at least several weeks, she has been acting like this which is confused, not speaking, occasionally telling her that she is having auditory hallucinations. Today she was seen in person by her local psychiatrist who thinks this is mental health in origin and sent her back to the ER for further medical tests and psychiatric placement if negative. Recent Illness/Hospitalization: Yes - psychiatric admission to [facility] - Past Medical History (1) Hypothyroid Status: Chronic (2) Depression Status: Chronic (3) Anxiety Status: Chronic Past Medical History - Allergies and Home Meds Allergies/Adverse Reactions: Allergies No Known Allergies Allergy (Verified 01/18/19 19:04) Primary Care Physician: Vinod Edwards NP-C [Primary Care Provider] - Lives: With Family Smoking Status: Light Smoker (<10/day) Drugs: None Review of Systems ROS: Unable to Obtain - Due to patient not speaking; history obtained from mother Psych: Reports: - - Auditory hallucinations Physical Exam Vital Signs/Narrative: Vital Signs Temp Pulse Resp BP Pulse Ox 01/18/19 19:02 97.1 F L 83 19 H 133/81 H 97 Inital Vital Signs reviewed: Yes General: Well nourished, Well developed, - - nad Head: Normocephalic, Atraumatic Eyes: Perrl, EOMI, - - Normal conjunctivae bilaterally. Negative for: Scleral icterus ENT: Moist mucous membranes, No rhinorrhea Neck: Supple, Nontender, No lymphadenopathy, - - No thyromegaly or thyroid tenderness Cardiovascular: Regular rate, Regular rhythm, No murmurs. Negative for: Tachycardia Respiratory: No distress, CTA bilaterally, Chest nontender Abdomen: Soft, Nontender, Nondistended, Normal bowel sounds Back: Nontender, Normal Inspection Extremities: Nontender, No Edema Skin: Normal color, No rash, No Trauma Neurological: Alert, Cranial nerves II-XII grossly intact, Normal Strength, Normal Sensation, Normal DTR, - - When talking to the patient she makes good eye contact and she follows commands but will not speak and answer any questions. Psych: Flat Affect, Poverty of Speech - The only words patient says to me during the entire evaluation is the word low when asking her mother if she has high or low thyroid. Diagnostic/Tx/Re-eval Laboratory Tests 01/18/19 01/18/19 01/18/19 Range/Units 21:40 21:40 21:40 WBC (4.4-11.0) K/mm3 RBC (4.2-5.4) M/mm3 Hgb (12.0-15.0) g/dL Hct (37-47) % MCV (81-99) fL MCH (27.0-32.0) pg MCHC (32-36) g/dL RDW Std Deviation (35.1-43.9) fl RDW Coeff of Lamar (11.6-14.6) % Plt Count (150-450) K/mm3 MPV (6.2-12.0) fl Immature Gran % (Auto) (0.0-0.9) % Neut % (Auto) (47-70) % Lymph % (Auto) (19-41) % [place] % (Auto) (0-10) % Eos % (Auto) (0-5) % Baso % (Auto) (0-1) % Absolute Neuts (auto) (2.0-7.7) X10^3/uL Absolute Lymphs (auto) (0.83-4.51) X10^3/uL Nucleated RBC % (0-5) % Sodium (136-145) mmol/L Potassium (3.5-5.1) mmol/L Chloride (98-107) mmol/L Carbon Dioxide (21.0-32.0) mmol/L Anion Gap (5-15) BUN (7-18) mg/dL Creatinine (0.55-1.02) mg/dL Estim Creat Clear Calc ml/min Est GFR (MDRD) Af Amer (>60) mL/min Est GFR (MDRD) Non-Af (>60) mL/min BUN/Creatinine Ratio (10-20) RATIO Glucose (74-106) mg/dL Calcium (8.5-10.1) mg/dL Total Bilirubin (0.20-1.00) mg/dL AST (15-37) U/L ALT (13-56) U/L Alkaline Phosphatase (45-117) U/L Total Protein (6.4-8.2) g/dL Albumin (3.2-5.0) g/dL Globulin (2.2-4.2) g/dL Albumin/Globulin Ratio (0.9-2.4) RATIO TSH 5.79 H (0.358-3.74) uIU/mL Serum , Qual NEGATIVE Negative Urine Opiates Screen (< 300 ng/mL) Urine Methadone Screen (< 300 ng/mL) Ur Barbiturates Screen (< 200 ng/mL) Ur Phencyclidine Scrn (< 25 ng/mL) Ur Amphetamines Screen (<1000 ng/mL) U Methamphetamin-MDMA (< 500 ng/mL) U Benzodiazepines Scrn (< 200 ng/mL) Urine Cocaine Screen (< 300 ng/mL) U Cannabinoids Screen (< 50 ng/mL) Ur Drug Screen Comment Ethyl Alcohol 6.0 mg/dL 01/18/19 01/18/19 01/18/19 Range/Units 21:40 21:40 21:00 WBC 12.7 H (4.4-11.0) K/mm3 RBC 4.34 (4.2-5.4) M/mm3 Hgb 13.7 (12.0-15.0) g/dL Hct 41.2 (37-47) % MCV 94.9 (81-99) fL MCH 31.6 (27.0-32.0) pg MCHC 33.3 (32-36) g/dL RDW Std Deviation 43.4 (35.1-43.9) fl RDW Coeff of Lamar 12.5 (11.6-14.6) % Plt Count 302 (150-450) K/mm3 MPV 11.1 (6.2-12.0) fl Immature Gran % (Auto) 0.300 (0.0-0.9) % Neut % (Auto) 64.9 (47-70) % Lymph % (Auto) 26.3 (19-41) % [place] % (Auto) 7.1 (0-10) % Eos % (Auto) 0.9 (0-5) % Baso % (Auto) 0.5 (0-1) % Absolute Neuts (auto) 8.2 H (2.0-7.7) X10^3/uL Absolute Lymphs (auto) 3.33 (0.83-4.51) X10^3/uL Nucleated RBC % 0 (0-5) % Sodium 141 (136-145) mmol/L Potassium 3.6 (3.5-5.1) mmol/L Chloride 104 (98-107) mmol/L Carbon Dioxide 30.0 (21.0-32.0) mmol/L Anion Gap 7 (5-15) BUN 12 (7-18) mg/dL Creatinine 1.02 (0.55-1.02) mg/dL Estim Creat Clear Calc 93.91 ml/min Est GFR (MDRD) Af Amer 82 (>60) mL/min Est GFR (MDRD) Non-Af 68 (>60) mL/min BUN/Creatinine Ratio 11.8 (10-20) RATIO Glucose 106 (74-106) mg/dL Calcium 9.3 (8.5-10.1) mg/dL Total Bilirubin 0.30 (0.20-1.00) mg/dL AST 12 L (15-37) U/L ALT 27 (13-56) U/L Alkaline Phosphatase 70 (45-117) U/L Total Protein 7.3 (6.4-8.2) g/dL Albumin 3.6 (3.2-5.0) g/dL Globulin 3.7 (2.2-4.2) g/dL Albumin/Globulin Ratio 1.0 (0.9-2.4) RATIO TSH (0.358-3.74) uIU/mL Serum , Qual Negative Urine Opiates Screen NEGATIVE (< 300 ng/mL) Urine Methadone Screen NEGATIVE (< 300 ng/mL) Ur Barbiturates Screen NEGATIVE (< 200 ng/mL) Ur Phencyclidine Scrn NEGATIVE (< 25 ng/mL) Ur Amphetamines Screen NEGATIVE (<1000 ng/mL) U Methamphetamin-MDMA NEGATIVE (< 500 ng/mL) U Benzodiazepines Scrn NEGATIVE (< 200 ng/mL) Urine Cocaine Screen NEGATIVE (< 300 ng/mL) U Cannabinoids Screen NEGATIVE (< 50 ng/mL) Ur Drug Screen Comment Ethyl Alcohol mg/dL Clinical Impression(s) from Imaging Studies Brain CT 01/18/19 22:49 IMPRESSION: Normal unenhanced CT scan of the brain. Electronically Signed: Jazzy Morgan, at 0:50 EDT Tel , Service support , Labs are normal except for mild nonspecific leukocytosis and TSH that is a little high, indicating that she has hypothyroid state, which she has a history of, as opposed to an acute hyperthyroid state which could mimic his psychiatric illness. CT of the head is negative. She is medically cleared for psychiatric evaluation, crisis evaluated her and agrees that she needs to be evaluated as an inpatient at this time. ED Disposition - Plan for ED Patient: Disposition: Psychiatric Hospital or Unit Diagnosis: Psychosis Referrals: Vinod Edwards NP-C [Primary Care Provider] -
[2019-01-18 23:17] VITALS: RESP 16
[2019-01-18 23:32] LABS: Thyroid Stim Hormone (TSH) 5.79 uIU/mL (0.358-3.74)
[2019-01-19 01:54] VITALS: BP 139/73; PULSE 72; RESP 18; O2SAT 97
[2019-01-19 04:10] VITALS: RESP 16
--- NOTE | 2019-01-19 04:30 | NURSING ---
ACCEPTED TO OHP BY DR. WOMACK [facility] [phone] [facility] [address] [facility]
[2019-01-19 04:47] VITALS: BP 138/69; PULSE 72; RESP 18; TEMP 36.2; O2SAT 98
[2019-01-19] MEDS: Estradiol 1 MG Tablet 2 MG PO (06:12)
[2019-01-19] MEDS: Levothyroxine 75 MCG Tablet PO (06:12)
[2019-01-19 06:14] VITALS: PULSE 78; RESP 16; O2SAT 98
== END 2019-01-19 08:11 ==
PROVIDERS: Emergency Provider Emergency Medicine; Family Provider Nurse Practitioner Family; PCP Nurse Practitioner Family
DX: F29 Unspecified psychosis not due to a substance or known physiological condition (principal); F17.210 Nicotine dependence, cigarettes, uncomplicated; E03.9 Hypothyroidism, unspecified; F32.9 Major depressive disorder, single episode, unspecified; F41.9 Anxiety disorder, unspecified
CPT/HCPCS: 36415; 70450; 80053; 80307; 80320; 84443; 84703; 85025; 99284; G0480

== ENCOUNTER → 2019-04-15 11:55 | Outpatient (CLI) | payer MEDICAID, SELFPAY ==
[2019-04-15 13:09] LABS: Absolute Lymphocyte Count 1.84 X10^3/uL (0.83-4.51); Absolute Neutrophil Count 5.7 X10^3/uL (2.0-7.7); Basophil# 0.07 X10^3/uL; Basophil% 0.8 % (0-1); Eosinophils% 1.2 % (0-5); Hematocrit 40.6 % (37-47); Hemoglobin 13.3 g/dL (12.0-15.0); Lymphocyte # 1.84 X10^3/ul (4.0); Lymphocyte % 22.2 % (19-41); Mean Corp Hgb Conc 32.8 g/dL (32-36); Mean Corpuscular Volume 94.6 fL (81-99); Mean Platelet Vol. 10.7 fl (6.2-12.0); Monocyte# 0.59 X10^3/uL; Monocyte% 7.1 % (0-10); NRBC Flagged by Analyzer 0 % (0-5); Neutrophil # 5.67 X10^3/uL (2.7-7.7); Neutrophil % 68.3 % (47-70); Platelet Count 279 K/mm3 (150-450); RBC Distribution Width CV 13.8 % (11.6-14.6); RBC Distribution Width SD 48.1 fl (35.1-43.9); Red Blood Count 4.29 M/mm3 (4.2-5.4); White Blood Count 8.3 K/mm3 (4.4-11.0)
[2019-04-15 13:40] LABS: Carbamazepine (Tegretol) 8.9 ug/mL (4.0-12.0)
[2019-04-15 13:43] LABS: ALB/GLOB Ratio 0.9 RATIO (0.9-2.4); AST(SGOT) 24 U/L (15-37); Alanine Aminotransfer ALT/SGPT 44 U/L (13-56); Albumin, Serum 3.7 g/dL (3.2-5.0); Alkaline Phosphatase 62 U/L (45-117); Anion Gap 6 (5-15); BUN 10 mg/dL (7-18); BUN/Creat Ratio 11.4 RATIO (10-20); Chloride 102 mmol/L (98-107); Creatinine, Serum 0.87 mg/dL (0.55-1.02); EST Glomerular Filtration Rate 81 mL/min (>60); Est Glom Filt Rate - Afr Amer 98 mL/min (>60); Glucose 88 mg/dL (74-106); Potassium 4.1 mmol/L (3.5-5.1); Protein, Total 7.7 g/dL (6.4-8.2); Sodium Level 138 mmol/L (136-145); Thyroid Stim Hormone (TSH) 2.79 uIU/mL (0.358-3.74)
== END ==
PROVIDERS: Family Provider Family Medicine; PCP Family Medicine; Referring Provider Nurse Practitioner Family; Visit Provider Nurse Practitioner Family
DX: Z79.899 Other long term (current) drug therapy (principal); F19.10 Other psychoactive substance abuse, uncomplicated; R53.83 Other fatigue
CPT/HCPCS: 36415; 80053; 80156; 84443; 85025

== ENCOUNTER → 2019-12-08 15:58 | Outpatient (CLI) | payer MEDICAID, SELFPAY ==
--- NOTE | 2019-12-08 16:09 | RAD_ITS ---
STUDY: X-RAY - SACROILIAC JOINTS REASON FOR EXAM: Female, 29 years old. no complaint per patient her PCP requested these test to be done. TECHNIQUE: 2 view(s) of the sacroiliac joints were obtained. COMPARISON: None. FINDINGS: Normal bilateral sacroiliac joints. Normal visualized sacral ala and sacrum. Normal visualized iliac bones. Normal visualized soft tissue structures. RAD/S-I Jts 3 or More Views IMPRESSION: Normal x-ray examination of the bilateral sacroiliac joints. Electronically Signed: Juanito Tipton MD at 17:13 EDT Tel , Service support ,
--- NOTE | 2019-12-08 16:09 | RAD_ITS ---
STUDY: X-RAY - PELVIS REASON FOR EXAM: Female, 29 years old. Asymptomatic TECHNIQUE: One view of the pelvis was obtained. COMPARISON: None. FINDINGS: There is a non-specific bowel gas pattern. Normal visualized soft tissue structures. Normal bilateral iliac wings, sacroiliac joints and visualized sacrum. Normal visualized bilateral superior and inferior pubic rami. Normal pubic symphysis. Normal ischial tuberosities. Normal visualized right femoral head. Normal right acetabulum. Normal right hip joint. Normal visualized left femoral head. Normal left acetabulum. Normal left hip joint. RAD/Pelvis 1 or 2 Views IMPRESSION: Normal x-ray examination of the pelvis. Electronically Signed: Juanito Tipton MD at 17:15 EDT Tel , Service support ,
[2019-12-08 17:08] LABS: Color, Urine Yellow (Yellow); Glucose, Dipstick Normal (Normal); Ketone-Dipstick Negative (Negative); Leukocyte Esterase-Dipstick Negative /ul (Negative); Nitrite-Dipstick Negative (Negative); Occult Blood-Urine Negative /ul (Negative); Protein-Dipstick Negative (Negative); Urine Bilirubin Dipstick Negative (Negative); Urine Clarity Clear (Clear); Urine Urobilinogen Normal (Normal)
[2019-12-08 17:38] LABS: Ferritin 45 ng/mL (8-252); Iron 75 ug/dL (50-170); Iron Binding Capacity,Total 283 ug/dL (250-450); PERCENT IRON SATURATION 26.5 % (15.0-55.0)
[2019-12-09 10:16] LABS: Hepatitis B Surface Antibody Non-Reactive; Hepatitis B Surface Antigen Non-Reactive (Nonreactive); Hepatitis C Antibody Non-Reactive (Nonreactive)
[2019-12-10 14:08] LABS: RNP Ab 0.3 AI (0.0-0.9); SJOGREN'S Anti-SS-A test < 0.2 AI (0.0-0.9); SJOGREN'S Anti-SS-B test < 0.2 AI (0.0-0.9); Smith Ab <0.2 AI (0.0-0.9)
[2019-12-13 05:26] LABS: Anti-dsDNA Ab 1 IU/mL (0-9)
[2019-12-13 14:08] LABS: QNTFERON TB Mitogen Value > 10.00 IU/mL (.); QNTFERON TB Nil Value 0.02 IU/mL (.); QNTFERON TB1+ Ag Value 0.04 IU/mL (.); QNTFERON TB2+ Ag Value 0.02 IU/mL (.)
[2019-12-13 14:41] LABS: CCP IgG Antibodies 5 units (0-19); Deamidated Gliadin IgA 7 units (0-19); Deamidated Gliadin IgG 3 units (0-19); Hepatitis B Core Ab Total Negative (Negative); QNTIFERON TB Positive Criteria Negative (Negative); t-Transglutaminase IgA 4 U/mL (0-3)
== END ==
PROVIDERS: PCP Family Medicine; Visit Provider Internal Medicine
DX: M25.50 Pain in unspecified joint (principal); M54.5 Low back pain; R76.8 Other specified abnormal immunological findings in serum
CPT/HCPCS: 36415; 72170; 72202; 81002; 82306; 82728; 83516; 83540; 83550; 86200; 86225; 86235; 86480; 86704; 86706; 86803; 87340

== ENCOUNTER → 2020-03-15 10:31 | Outpatient (CLI) | payer MEDICAID, SELFPAY ==
[2020-03-15 11:21] LABS: Absolute Lymphocyte Count 2.72 X10^3/uL (0.83-4.51); Absolute Neutrophil Count 5.5 X10^3/uL (2.0-7.7); Basophil# 0.04 X10^3/uL; Basophil% 0.4 % (0-1); Eosinophil# 0.18 X10^3/uL; Hematocrit 42.5 % (37-47); Hemoglobin 14.1 g/dL (12.0-15.0); Lymphocyte # 2.72 X10^3/ul (4.0); Lymphocyte % 30.3 % (19-41); Mean Corp Hgb Conc 33.2 g/dL (32-36); Mean Corpuscular Hgb 31.7 pg (27.0-32.0); Mean Corpuscular Volume 95.5 fL (81-99); Mean Platelet Vol. 10.5 fl (6.2-12.0); Monocyte# 0.53 X10^3/uL; Monocyte% 5.9 % (0-10); NRBC Flagged by Analyzer 0 % (0-5); Neutrophil # 5.47 X10^3/uL (2.7-7.7); Platelet Count 329 K/mm3 (150-450); RBC Distribution Width CV 12.8 % (11.6-14.6); RBC Distribution Width SD 44.4 fl (35.1-43.9); Red Blood Count 4.45 M/mm3 (4.2-5.4)
[2020-03-15 11:42] LABS: Hemoglobin A1c 5.1 % (3.8-5.6)
[2020-03-15 12:11] LABS: ALB/GLOB Ratio 0.9 RATIO (0.9-2.4); AST(SGOT) 16 U/L (15-37); Alanine Aminotransfer ALT/SGPT 29 U/L (13-56); Albumin, Serum 3.5 g/dL (3.2-5.0); Alkaline Phosphatase 67 U/L (45-117); Anion Gap 5 (5-15); BUN 9 mg/dL (7-18); BUN/Creat Ratio 9.7 RATIO (10-20); Calcium,Total 8.8 mg/dL (8.5-10.1); Chloride 106 mmol/L (98-107); Cholesterol 224 mg/dL (200); Creatinine, Serum 0.93 mg/dL (0.55-1.02); EST Glomerular Filtration Rate 75 mL/min (>60); Est Glom Filt Rate - Afr Amer 91 mL/min (>60); Globulin 4.1 g/dL (2.2-4.2); Glucose 93 mg/dL (74-106); High Density Lipoprotein 37 mg/dL; Potassium 3.9 mmol/L (3.5-5.1); Protein, Total 7.6 g/dL (6.4-8.2); Sodium Level 136 mmol/L (136-145); Thyroid Stim Hormone (TSH) 4.15 uIU/mL (0.358-3.74); Triglycerides 167 mg/dL; Very Low Density Lipoprotein 33 mg/dL (5-40)
== END ==
PROVIDERS: PCP Family Medicine; Referring Provider Nurse Practitioner Family; Visit Provider Nurse Practitioner Family
DX: Z79.899 Other long term (current) drug therapy (principal)
CPT/HCPCS: 36415; 80053; 80061; 80156; 83036; 84443; 85025

== ENCOUNTER → 2020-06-26 13:56 | Outpatient (CLI) | payer MEDICAID, SELFPAY ==
[2020-06-26 15:31] LABS: Anion Gap 4 (5-15); BUN 10 mg/dL (7-18); BUN/Creat Ratio 11.2 RATIO (10-20); Calcium,Total 9.3 mg/dL (8.5-10.1); Chloride 108 mmol/L (98-107); Creatinine, Serum 0.89 mg/dL (0.55-1.02); EST Glomerular Filtration Rate 79 mL/min (>60); Est Glom Filt Rate - Afr Amer 95 mL/min (>60); Estradiol 41.7 pg/mL; Glucose 96 mg/dL (74-106); Potassium 4.2 mmol/L (3.5-5.1); Sodium Level 139 mmol/L (136-145)
== END ==
PROVIDERS: PCP Family Medicine
DX: F64.9 Gender identity disorder, unspecified (principal)
CPT/HCPCS: 36415; 80048; 82670; 84403

== ENCOUNTER → 2020-11-28 15:43 | Outpatient (CLI) | payer MEDICAID, SELFPAY ==
[2020-11-28 16:37] LABS: Absolute Lymphocyte Count 3.28 X10^3/uL (0.83-4.51); Absolute Neutrophil Count 8.2 X10^3/uL (2.0-7.7); Basophil# 0.06 X10^3/uL; Basophil% 0.5 % (0-1); Eosinophil# 0.27 X10^3/uL; Eosinophils% 2.2 % (0-5); Hematocrit 41.3 % (37-47); Hemoglobin 13.8 g/dL (12.0-15.0); Lymphocyte # 3.28 X10^3/ul (0.83-4.51); Lymphocyte % 26.3 % (19-41); Mean Corp Hgb Conc 33.4 g/dL (32-36); Mean Corpuscular Hgb 31.7 pg (27.0-32.0); Mean Corpuscular Volume 94.9 fL (81-99); Mean Platelet Vol. 11.2 fl (6.2-12.0); Monocyte# 0.63 X10^3/uL; NRBC Flagged by Analyzer 0 % (0-5); Neutrophil % 65.6 % (47-70); Platelet Count 356 K/mm3 (150-450); RBC Distribution Width CV 12.6 % (11.6-14.6); RBC Distribution Width SD 44.1 fl (35.1-43.9); Red Blood Count 4.35 M/mm3 (4.2-5.4); White Blood Count 12.5 K/mm3 (4.4-11.0)
[2020-11-28 16:57] LABS: Carbamazepine (Tegretol) 5.8 ug/mL (4.0-12.0)
[2020-11-28 17:07] LABS: ALB/GLOB Ratio 0.8 RATIO (0.9-2.4); AST(SGOT) 14 U/L (15-37); Alanine Aminotransfer ALT/SGPT 22 U/L (13-56); Albumin, Serum 3.6 g/dL (3.2-5.0); Alkaline Phosphatase 67 U/L (45-117); Anion Gap 6 (5-15); BUN 7 mg/dL (7-18); BUN/Creat Ratio 6.5 RATIO (10-20); Calcium,Total 8.8 mg/dL (8.5-10.1); Chloride 107 mmol/L (98-107); Creatinine, Serum 1.08 mg/dL (0.55-1.02); EST Glomerular Filtration Rate 63 mL/min (>60); Est Glom Filt Rate - Afr Amer 76 mL/min (>60); Globulin 4.3 g/dL (2.2-4.2); Glucose 103 mg/dL (74-106); Potassium 3.7 mmol/L (3.5-5.1); Protein, Total 7.9 g/dL (6.4-8.2); Sodium Level 139 mmol/L (136-145); Thyroid Stim Hormone (TSH) 3.37 uIU/mL (0.358-3.74)
== END ==
PROVIDERS: PCP Family Medicine; Referring Provider Nurse Practitioner Family; Visit Provider Nurse Practitioner Family
DX: Z79.899 Other long term (current) drug therapy (principal)
CPT/HCPCS: 36415; 80053; 80156; 84443; 85025

== ENCOUNTER → 2020-12-05 11:59 | Outpatient (CLI) | payer MEDICAID, SELFPAY ==
[2020-12-05 13:59] LABS: AST(SGOT) 18 U/L (15-37); Alanine Aminotransfer ALT/SGPT 27 U/L (13-56); Albumin, Serum 3.7 g/dL (3.2-5.0); Alkaline Phosphatase 71 U/L (45-117); Anion Gap 6 (5-15); BUN 8 mg/dL (7-18); BUN/Creat Ratio 8.7 RATIO (10-20); Bilirubin, Direct 0.08 mg/dL (0.00-0.30); Calcium,Total 9.1 mg/dL (8.5-10.1); Chloride 104 mmol/L (98-107); Creatinine, Serum 0.92 mg/dL (0.55-1.02); EST Glomerular Filtration Rate 76 mL/min (>60); Est Glom Filt Rate - Afr Amer 92 mL/min (>60); Globulin 4.2 g/dL (2.2-4.2); Glucose 87 mg/dL (74-106); Potassium 4.2 mmol/L (3.5-5.1); Protein, Total 7.9 g/dL (6.4-8.2); Sodium Level 138 mmol/L (136-145)
== END ==
PROVIDERS: PCP Family Medicine
DX: F64.9 Gender identity disorder, unspecified (principal)
CPT/HCPCS: 36415; 80048; 80076; 82670; 84403

== ENCOUNTER 2021-08-07 14:02 | Outpatient (CLI) | payer MEDICARE, MEDICAID, SELFPAY ==
[2021-08-07 15:20] LABS: Absolute Lymphocyte Count 2.97 X10^3/uL (0.83-4.51); Absolute Neutrophil Count 7.5 X10^3/uL (2.0-7.7); Basophil# 0.08 X10^3/uL; Basophil% 0.7 % (0-1); Eosinophil# 0.27 X10^3/uL; Eosinophils% 2.3 % (0-5); Hematocrit 41.7 % (37-47); Hemoglobin 14.1 g/dL (12.0-15.0); Lymphocyte # 2.97 X10^3/ul (0.83-4.51); Lymphocyte % 25.8 % (19-41); Mean Corp Hgb Conc 33.8 g/dL (32-36); Mean Corpuscular Hgb 31.6 pg (27.0-32.0); Mean Corpuscular Volume 93.5 fL (81-99); Mean Platelet Vol. 11.1 fl (6.2-12.0); Monocyte# 0.59 X10^3/uL; Monocyte% 5.1 % (0-10); NRBC Flagged by Analyzer 0 % (0-5); Neutrophil # 7.54 X10^3/uL (2.7-7.7); Neutrophil % 65.8 % (47-70); Platelet Count 330 K/mm3 (150-450); RBC Distribution Width CV 12.7 % (11.6-14.6); RBC Distribution Width SD 43.7 fl (35.1-43.9); Red Blood Count 4.46 M/mm3 (4.2-5.4); White Blood Count 11.5 K/mm3 (4.4-11.0)
[2021-08-07 16:14] LABS: Carbamazepine (Tegretol) 7.1 ug/mL (4.0-12.0)
[2021-08-07 16:27] LABS: ALB/GLOB Ratio 0.8 RATIO (0.9-2.4); AST(SGOT) 16 U/L (15-37); Alanine Aminotransfer ALT/SGPT 24 U/L (13-56); Albumin, Serum 3.5 g/dL (3.2-5.0); Alkaline Phosphatase 63 U/L (45-117); Anion Gap 6 (5-15); BUN 8 mg/dL (7-18); BUN/Creat Ratio 7.5 RATIO (10-20); Calcium,Total 8.9 mg/dL (8.5-10.1); Chloride 106 mmol/L (98-107); Cholesterol 204 mg/dL (200); Creatinine, Serum 1.07 mg/dL (0.55-1.02); EST Glomerular Filtration Rate 63 mL/min (>60); Est Glom Filt Rate - Afr Amer 77 mL/min (>60); Globulin 4.2 g/dL (2.2-4.2); Glucose 93 mg/dL (74-106); High Density Lipoprotein 33 mg/dL; Potassium 3.7 mmol/L (3.5-5.1); Protein, Total 7.7 g/dL (6.4-8.2); Sodium Level 138 mmol/L (136-145); Triglycerides 206 mg/dL; Very Low Density Lipoprotein 41 mg/dL (5-40)
== END 2021-08-07 23:59 | disposition home or self-care (01) ==
LOC: LAB 14:02
PROVIDERS: PCP Family Medicine; Referring Provider Nurse Practitioner Family; Visit Provider Nurse Practitioner Family
DX: Z79.899 Other long term (current) drug therapy (principal); F19.10 Other psychoactive substance abuse, uncomplicated; R53.83 Other fatigue
CPT/HCPCS: 36415; 80053; 80061; 80156; 84443; 85025

== ENCOUNTER 2022-07-27 16:16 | Emergency (ER) | payer MEDICARE, MEDICAID, SELFPAY ==
[2022-07-27 16:19] VITALS: BP 121/77; PULSE 109; RESP 14; TEMP 36.2; O2SAT 96; BMI 45.2
--- NOTE | 2022-07-27 16:39 | EDS_ITS ---
HPI History of Present Illness Chief Complaint: Diarrhea Detail of Chief Complaint: Nausea, vomiting and diarrhea since 0200 and unable to sleep x2 days Informant: patient and parent Onset/Context/Timing Onset: Today (With respect to the GI symptoms) and Days (2 days with respect to insomnia) Context: Sudden Onset Timing: Intermittent Quality: HPI narrative Location: HPI narrative Current Severity: Mild Maximum Severity: Moderate Worsened by: Nothing Relieved by: Nothing Associated Symptoms Associated Symptoms: Dry mouth, thirst and denies orthostatic symptoms and HPI narrative Narrative Narrative: Patient is a 32-year-old woman with history of acquired hypothyroidism, depression who states her Rexulti was discontinued 2 years days ago. She states her psychiatrist wants her on less medication. Those records are not available through [employer]. Office visits were. Patient has recently been seen for generalized anxiety disorder, acquired hypothyroidism and had a visit in March related to ulcerative colitis. She was last scoped 2012. Patient presents with nausea, vomit diarrhea that started 0200. She vomited once and then had dry heaves. She states she is had too numerous to count watery brown stools. There was no blood or mucus noted. She denies abdominal pain. She denies ill contacts. She has not been on an antibiotic in the past month. She has not consumed well water. She has not eaten anything that tasted unusual to her. Mother supplemented history. There is been no complaint of subjective or documented fever. She denies chills. She denies weight loss. She denies headache, visual, ocular auditory symptoms. She denies myalgias or arthralgias. She denies rash. Prior similar symptoms: Yes Recent Illness/Hospitalization: No PFSH PFS Home Medications spironolactone 100 mg tablet (Aldactone) 200 mg PO DAILY 10/06/18 [History Last Taken Unknown] estradiol 2 mg tablet 2 mg PO TID 12/08/18 [History Last Taken Unknown] levothyroxine 75 mcg tablet 1 tab PO DAILY 12/08/18 [History Last Taken Unknown] quetiapine 50 mg tablet 300 mg PO QHS 12/08/18 [History Last Taken Unknown] zolpidem 5 mg tablet (Ambien) 5 mg PO QHS PRN insomnia #2 tabs 07/27/22 [Rx Last Taken Unknown] Allergy/AdvReac Type Severity Reaction Status Date / Time No Known Allergies Allergy Verified 07/27/22 16:19 Social History (Updated 07/27/22 @ 16:[address] Jacky Copeland MD) household members: family Smoking Status: Never smoker substance use type: does not use ROS ROS ED Constitutional Constitutional ED: Denies chills, fever(s), subjective, sweats or weight loss Eyes Eyes: Denies blurry vision, change in vision or diplopia ENT ENT ED: Denies ear pain, rhinorrhea or sore throat Cardiovascular Cardiovascular: Denies chest pain, palpitations or racing heartbeat Respiratory/Chest Respiratory/Chest: Denies cough, dyspnea or dyspnea on exertion Gastrointestinal Gastrointestinal: Reports diarrhea, nausea and vomiting; Denies abdominal pain or melena Genitourinary Genitourinary ED: Denies dysuria, hematuria or urinary frequency Musculoskeletal Musculoskeletal: Denies arthralgias, back pain, myalgias or neck pain Neurologic Neurologic: Denies headache(s), paresthesias or weakness Psychiatric Psychiatric: Reports anxiety, depression and other Details: Insomnia for the past 2 nights ; Denies suicidal ideation or suicidal thoughts Endocrine Endocrinology: Denies cold intolerance or heat intolerance Hematologic/Lymphatic Hematologic/Lymphatic: Reports systems reviewed and no addt'l complaints, except as documented EXAM Physical Exam Const Vital Signs: 07/27/22 16:19 Temperature 97.2 F L Temperature Source Temporal Pulse Rate 109 H Respiratory Rate 14 Blood Pressure 121/77 H Blood Pressure Mean 91 Pulse Ox 96 Oxygen Delivery Method Room Air Positive well nourished, well developed and obese General Appearance ED: well developed, NAD and pallor; Negative for cyanotic or diaphoretic Nutritional Appearance: obese HEENT Reports dry mucous membranes HEENT Narrative: Head is atraumatic normocephalic. Ears normal. Nares patent. Posterior pharynx unremarkable. Mouth ED: Yes dry mucous membranes Mouth: dry mucous membranes Eyes PERRL and EOMs intact bilaterally General Eye ED: Negative for pale conjunctiva or scleral icterus Neck no lymphadenopathy, supple and no JVD Chest Wall inspection of chest normal and palpation of chest normal Resp normal respiratory effort and clear to auscultation bilaterally Cardio regular rhythm, S1 normal heart sound, S2 normal heart sound and no murmurs Rate: tachycardic GI normal to inspection, nondistended, normoactive bowel sounds, non-tender and non-distended; Negative for hepatosplenomegaly or no masses Palpation: soft Back/Spine no CVA tenderness Cervical Spine: Negative for cervical spine tenderness Thoracic Spine / Upper Back: Negative for thoracic spinal tenderness Extremity normal to inspection General Extremety ED: Negative for edema or tenderness General Extremity: Negative for edema Neuro oriented x3 and CN's II-XII intact bilaterally Sensorium / Orientation: alert Psych Psych Narrative: Affect is flat. Mood & Affect: depressed Skin no rashes or lesions noted, no wounds and skin turgor normal General Skin Exam: elasticity normal and pallor; Negative for jaundice MDM MDM MDM Narrative Medical decision making narrative: Patient presents with significant mount of diarrhea. Clinically she is dehydrated. She denies orthostatic symptoms. Heart rate is rapid at 109 consistent with dehydration. Because her main symptom is diarrhea basic metabolic panel was obtained to assess for hypokalemia and assess renal function. 1 L of normal saline was ordered. She was treated with Zofran for her nausea and Imodium for her diarrhea. Prior visits were reviewed as well as outside office visits at the [facility]. CBC was not obtained since she is denying blood. Do not believe this to be an exacerbation of her ulcerative colitis. Lab Data Attestation: I reviewed the patient's lab results. Lab results narrative: Electrolytes are unremarkable. BUN to creatinine ratio is unremarkable. Glucose is slightly elevated. Since patient had no vomiting during her 2-1/2-hour course will discharge to home. Labs: Laboratory Results - last 24 hr 07/27/22 16:52 Sodium 140 Potassium 3.6 Chloride 107 Carbon Dioxide 23.0 Anion Gap 10 BUN 10 Creatinine 0.96 Estim Creat Clear Calc 90.98 Est GFR (MDRD) Af Amer 87 Est GFR (MDRD) Non-Af 72 BUN/Creatinine Ratio 10.5 Glucose 112 H Calcium 9.0 Rhythm Strip Rhythm Strip: Sinus Tach Rate: 111 Ectopy: None Discharge Plan Triage Chief Complaint: Diarrhea ED Provider: Jacky Copeland Dx/Rx/DC Orders Clinical Impression: Nausea, vomiting and diarrhea, Hypothyroid, Depression, Abdominal pain, Insomnia Instructions: ED Insomnia, ED Vomiting and Diarrhea ... Prescriptions: New zolpidem [Ambien] 5 mg tablet 5 mg PO QHS PRN (Reason: insomnia) Qty: 2 0RF No Action spironolactone [Aldactone] 100 MG tablet 200 mg PO DAILY levothyroxine 75 tablet 1 tab PO DAILY estradiol 2 tablet 2 mg PO TID quetiapine 50 mg tablet 300 mg PO QHS Label Comments: Take 1 tablet by mouth every night Primary Care Provider: Jovan Krause Referrals: Jovan Krause MD [Primary Care Provider] - Disposition Disposition: Home, Self Care
[2022-07-27] MEDS: 0.9% Normal Saline 1,000 ML 1000 ML IV (16:58)
[2022-07-27] MEDS: Ondansetron 4 MG/2 ML Vial IV (16:59)
[2022-07-27] MEDS: Loperamide 2 MG Capsule 4 MG PO (16:59)
[2022-07-27 18:16] VITALS: RESP 18
[2022-07-27 18:41] LABS: Anion Gap 10 (5-15); BUN 10 mg/dL (7-18); BUN/Creat Ratio 10.5 RATIO (10-20); Chloride 107 mmol/L (98-107); Creatinine, Serum 0.96 mg/dL (0.55-1.02); EST Glomerular Filtration Rate 72 mL/min (>60); Est Glom Filt Rate - Afr Amer 87 mL/min (>60); Estimated Creatinine Clearance 90.98 ml/min; Glucose 112 mg/dL (74-106); Potassium 3.6 mmol/L (3.5-5.1); Sodium Level 140 mmol/L (136-145)
== END 2022-07-27 20:03 | disposition home or self-care (01) ==
PROVIDERS: Emergency Provider Emergency Medicine; PCP Family Medicine; Visit Provider Emergency Medicine
DX: R11.2 Nausea with vomiting, unspecified (principal); E03.9 Hypothyroidism, unspecified; R19.7 Diarrhea, unspecified; R10.9 Unspecified abdominal pain; G47.00 Insomnia, unspecified; E86.0 Dehydration; F32.A Depression, unspecified
CPT/HCPCS: 80048; 96361; 96374; 99284; J2405

== ENCOUNTER 2024-09-10 13:53 | Emergency (ER) | payer MEDICAID, MEDICARE, SELFPAY ==
[2024-09-10 13:55] VITALS: BP 153/72; PULSE 82; RESP 18; TEMP 36.8; O2SAT 98; BMI 44.9
--- NOTE | 2024-09-10 15:09 | ED.VIS.GI ---
HPI HPI - GI History of Present Illness Chief Complaint: GI Bleed Informant: patient Narrative Narrative: 34-year-old female presenting with hematochezia for the past 3 weeks or so. She states she has had small month blood on the toilet paper mostly, but lately has turned to some blood mixed with diarrhea for the last few days. Today she developed some periumbilical abdominal cramping. She denies any fevers or chills. No nausea or vomiting. She has a history of ulcerative proctitis, this was found by colonoscopy when she was having rectal bleeding years ago, she had a repeat scope 3 to 4 years ago that showed it was resolved and she was asymptomatic so she has been on no medications for it. She saw a GI doctor in [place], she does not remember who it was. She called her doctor to get a follow-up for all of this today, and they referred her to the ER, the patient states they were concerned she may have diverticulitis. She has never had that before and she has never had diverticulosis on her prior scopes according to her. [facility] Medical History (Updated 09/10/24 @ 16:[address] Nikolas Davis MD) Ulcerative proctitis Hypothyroid Depression Anxiety Home Medications ?Medication ?Instructions ?Recorded ?Last Taken ?Type spironolactone 100 mg tablet 200 mg PO DAILY 10/06/18 Unknown History (Aldactone) estradiol 2 mg tablet 2 mg PO TID 12/08/18 Unknown History levothyroxine 75 mcg tablet 1 tab PO DAILY 12/08/18 Unknown History quetiapine 50 mg tablet 300 mg PO QHS 12/08/18 Unknown History zolpidem 5 mg tablet (Ambien) 5 mg PO QHS PRN insomnia #2 tabs 07/27/22 Unknown Rx mesalamine 0.375 gram 1.5 g (4 x 0.375 gram) PO DAILY 09/10/24 Unknown Rx capsule,extended release 24 hr #120 caps (Apriso) mesalamine 1,000 mg rectal 1 g AK QHS #30 ea 09/10/24 Unknown Rx suppository (Canasa) Allergy/AdvReac Type Severity Reaction Status Date / Time No Known Allergies Allergy Verified 07/27/22 16:19 Social History household members: family Smoking Status: Never smoker substance use type: does not use ROS ROS ED Constitutional Constitutional ED: Denies chills or fever(s) Eyes Eyes: Denies change in vision or diplopia ENT ENT ED: Denies rhinorrhea or sore throat Cardiovascular Cardiovascular: Denies chest pain or palpitations Respiratory/Chest Respiratory/Chest: Denies cough or dyspnea Gastrointestinal Gastrointestinal: Reports abdominal pain, diarrhea and hematochezia; Denies hematemesis, melena, nausea or vomiting Genitourinary Genitourinary ED: Denies dysuria or hematuria Musculoskeletal Musculoskeletal: Denies back pain or neck pain Integumentary Denies abscess or rash Neurologic Neurologic: Denies headache(s), paresthesias or weakness Psychiatric Psychiatric: Denies anxiety or suicidal thoughts EXAM Physical Exam Const Vital Signs: 09/10/24 13:55 09/10/24 15:54 Temperature 98.2 F Temperature Source Oral Pulse Rate 82 77 Respiratory Rate 18 18 Blood Pressure 153/72 H 146/82 H Blood Pressure Mean 99 103 Pulse Ox 98 98 Oxygen Delivery Method Room Air Positive well nourished, well developed and obese Constitutional Narrative: Well-appearing General Appearance ED: well developed and NAD Nutritional Appearance: obese HEENT Reports moist mucous membranes normocephalic and atraumatic Eyes PERRL and EOMs intact bilaterally Neck full ROM and supple Resp normal respiratory effort and clear to auscultation bilaterally Cardio regular rate, regular rhythm and no murmurs GI non-tender and non-distended Auscultation: normoactive bowel sounds Palpation: soft Back/Spine no CVA tenderness General Back: other FROM Extremity normal to inspection General Extremety ED: Negative for edema, pulses abnormal or tenderness General Extremity: Negative for edema or pulses abnormal Neuro oriented x3, CN's II-XII intact bilaterally and no sensory deficits noted Sensorium / Orientation: awake and alert Motor Exam: strength 5/5 throughout Skin no rashes or lesions noted and no wounds MDM MDM MDM Narrative Medical decision making narrative: I reviewed some limited documents that I was able to see from [facility], showing that the patient saw GI back in 2016 when, she had a colonoscopy in 2013 at [facility], records are not able to obtain at this time, and they were not at that time either, that according to the patient showed ulcerative proctitis. Patient had uncontrolled symptoms of ulcerative proctitis at that time, similar to what she has now. They recommended Apriso 4 tabs daily and Canasa suppository nightly. At this time her abdomen is very benign, she is having some mild periumbilical pain/cramping without any tenderness, and I do not think she has acute diverticulitis given that she does not have tenderness in her abdomen and the bleeding and diarrhea has been present for some time. Her symptoms are more likely related to her ulcerative proctitis. I obtained some basic labs here and also ordered stool C. difficile and enteric bacterial panel to rule out acute infectious causes of her acute diarrhea. Her labs are all unremarkable. Reevaluations without treatment, she states abdominal pain went away. I am given her dicyclomine anyway, but I do not think she needs an emergent CT of the abdomen/pelvis here today, I do not think she has diverticulitis and probably does not have diverticulosis for that matter. I think putting her on the combination of Apriso and Canasa is reasonable. She may have to check and see if her current insurance covers these, she states it is different insurance than when she was on those. We also talked about mesalamine enemas, she prefers a suppository. She understands that is indicated at least as long as it takes to get her symptoms under control, she may be able to just take the Apriso after that for maintenance but she needs to follow-up with GI. She is interested in being established with ours since we are local, given referral. She was able to give us a diarrhea specimen here which we are sending for ova and parasites, C. difficile, and enteric panel. Most of those will not return today, so she will be discharged to follow-up. History & Record Review Additional record(s) reviewed:: Prior outpatient record Lab Data Attestation: I reviewed the patient's lab results. Labs: Laboratory Results - last 24 hr 09/10/24 15:12 WBC 10.5 RBC 4.40 Hgb 13.9 Hct 43.6 MCV 99.1 H MCH 31.6 MCHC 31.9 L RDW Std Deviation 44.9 H RDW Coeff of Lamar 12.3 Plt Count 266 MPV 11.3 Immature Gran % (Auto) 0.300 Neut % (Auto) 71.1 H Lymph % (Auto) 22.4 Stevens % (Auto) 4.7 Eos % (Auto) 0.6 Baso % (Auto) 0.9 Absolute Neuts (auto) 7.5 Absolute Lymphs (auto) 2.35 Nucleated RBC % 0 Sodium 139 Potassium 4.0 Chloride 103 Carbon Dioxide 28.3 Anion Gap 8 BUN 8 Creatinine 0.81 Estim Creat Clear Calc 151.20 Est GFR (MDRD) Non-Af 97 BUN/Creatinine Ratio 10.2 Glucose 113 H Calcium 9.5 Total Bilirubin 0.17 AST 20 ALT 15 Alkaline Phosphatase 62 Total Protein 7.8 Albumin 4.3 Globulin 3.5 Albumin/Globulin Ratio 1.2 Discharge Plan Triage Chief Complaint: GI Bleed ED Provider: Nikolas Davsi Dx/Rx/DC Orders Clinical Impression: Ulcerative proctitis with rectal bleeding Instructions: Rectal Bleeding Tx, ED Ulcerative Colitis Prescriptions: New mesalamine [Canasa] 1,000 mg suppository 1 g AK QHS Qty: 30 0RF mesalamine [Apriso] 0.375 gram capsule,extended release 24hr 1.5 g PO DAILY Qty: 120 0RF No Action spironolactone [Aldactone] 100 MG tablet 200 mg PO DAILY levothyroxine 75 tablet 1 tab PO DAILY estradiol 2 tablet 2 mg PO TID quetiapine 50 mg tablet 300 mg PO QHS Patient Comments: Take 1 tablet by mouth every night zolpidem [Ambien] 5 mg tablet 5 mg PO QHS PRN (Reason: insomnia) Qty: 2 0RF Primary Care Provider: Jovan Krause Referrals: Jovan Krause MD [Primary Care Provider] - Friend,DO Masoud [Med Staff - Active Staff] - As soon as possible Activity Restrictions/Additional Instructions: Use the suppositories for at least as long as it takes to control your symptoms. You may then try discontinuing them and discontinue the oral pills, but it would not be harmful to continue the nightly suppositories, and more likely to keep you symptom-free. Print Language: Italian Disposition Disposition: Home, Self Care
[2024-09-10 15:23] LABS: Absolute Lymphocyte Count 2.35 X10^3/uL (0.83-4.51); Absolute Neutrophil Count 7.5 X10^3/uL (2.0-7.7); Basophil# 0.09 X10^3/uL; Basophil% 0.9 % (0-1); Eosinophil# 0.06 X10^3/uL; Eosinophils% 0.6 % (0-5); Hematocrit 43.6 % (37-47); Hemoglobin 13.9 g/dL (12.0-15.0); Lymphocyte # 2.35 X10^3/ul (0.83-4.51); Lymphocyte % 22.4 % (19-41); Mean Corp Hgb Conc 31.9 g/dL (32-36); Mean Corpuscular Hgb 31.6 pg (27.0-32.0); Mean Corpuscular Volume 99.1 fL (81-99); Mean Platelet Vol. 11.3 fl (6.2-12.0); Monocyte# 0.49 X10^3/uL; Monocyte% 4.7 % (0-10); NRBC Flagged by Analyzer 0 % (0-5); Neutrophil # 7.49 X10^3/uL (2.7-7.7); Neutrophil % 71.1 % (47-70); Platelet Count 266 K/mm3 (150-450); RBC Distribution Width CV 12.3 % (11.6-14.6); RBC Distribution Width SD 44.9 fl (35.1-43.9); White Blood Count 10.5 K/mm3 (4.4-11.0)
[2024-09-10 15:54] VITALS: BP 146/82; PULSE 77; RESP 18; O2SAT 98
[2024-09-10 15:56] LABS: ALB/GLOB Ratio 1.2 RATIO (0.9-2.4); AST(SGOT) 20 U/L (<=31); Alanine Aminotransfer ALT/SGPT 15 U/L (<=34); Albumin, Serum 4.3 g/dL (3.5-5.0); Alkaline Phosphatase 62 U/L (35-104); Anion Gap 8 (5-15); BUN 8 mg/dL (4-19); BUN/Creat Ratio 10.2 RATIO (10-20); Calcium,Total 9.5 mg/dL (7.6-11.0); Carbon Dioxide 28.3 mmol/L (21.0-32.0); Chloride 103 mmol/L (98-108); Creatinine, Serum 0.81 mg/dL (0.70-1.20); EST Glomerular Filtration Rate 97 (>60); Globulin 3.5 g/dL (2.2-4.2); Glucose 113 mg/dL (70-99); Protein, Total 7.8 g/dL (5.9-8.4); Sodium Level 139 mmol/L (133-145); Total Bilirubin 0.17 mg/dL (0.00-1.30)
[2024-09-10] MEDS: Dicyclomine 10 MG Capsule 20 MG PO (16:25)
== END 2024-09-10 16:40 | disposition home or self-care (01) ==
PROVIDERS: Emergency Provider Emergency Medicine; PCP Family Medicine; Visit Provider Emergency Medicine
DX: K51.211 Ulcerative (chronic) proctitis with rectal bleeding (principal); E03.9 Hypothyroidism, unspecified; E66.9 Obesity, unspecified
CPT/HCPCS: 80053; 85025; 87493; 87506; 99282

== ENCOUNTER → 2024-10-19 | Outpatient (CLI) | payer MEDICARE, MEDICAID, SELFPAY ==
[2024-10-19 14:27] LABS: Absolute Lymphocyte Count 2.49 X10^3/uL (0.83-4.51); Absolute Neutrophil Count 7.8 X10^3/uL (2.0-7.7); Basophil# 0.08 X10^3/uL; Basophil% 0.7 % (0-1); Eosinophils% 0.9 % (0-5); Hematocrit 41.1 % (37-47); Hemoglobin 13.8 g/dL (12.0-15.0); Lymphocyte # 2.49 X10^3/ul (0.83-4.51); Lymphocyte % 22.6 % (19-41); Mean Corp Hgb Conc 33.6 g/dL (32-36); Mean Corpuscular Hgb 31.6 pg (27.0-32.0); Mean Corpuscular Volume 94.1 fL (81-99); Mean Platelet Vol. 11.3 fl (6.2-12.0); Monocyte# 0.48 X10^3/uL; Monocyte% 4.4 % (0-10); NRBC Flagged by Analyzer 0 % (0-5); Neutrophil # 7.82 X10^3/uL (2.7-7.7); Neutrophil % 71.1 % (47-70); Platelet Count 310 K/mm3 (150-450); RBC Distribution Width CV 12.5 % (11.6-14.6); RBC Distribution Width SD 42.8 fl (35.1-43.9); Red Blood Count 4.37 M/mm3 (4.2-5.4)
[2024-10-19 15:05] LABS: ALB/GLOB Ratio 1.3 RATIO (0.9-2.4); AST(SGOT) 19 U/L (<=31); Alanine Aminotransfer ALT/SGPT 15 U/L (<=34); Albumin, Serum 4.3 g/dL (3.5-5.0); Alkaline Phosphatase 68 U/L (35-104); Anion Gap 11 (5-15); BUN 8 mg/dL (4-19); BUN/Creat Ratio 9.2 RATIO (10-20); CRP 6.21 mg/L (0.0-3.0); Calcium,Total 9.5 mg/dL (7.6-11.0); Carbon Dioxide 23.7 mmol/L (21.0-32.0); Chloride 101 mmol/L (98-108); Creatinine, Serum 0.88 mg/dL (0.70-1.20); EST Glomerular Filtration Rate 89 (>60); Globulin 3.4 g/dL (2.2-4.2); Glucose 95 mg/dL (70-99); Potassium 3.9 mmol/L (3.3-5.1); Protein, Total 7.6 g/dL (5.9-8.4); Sodium Level 136 mmol/L (133-145); Total Bilirubin 0.17 mg/dL (0.00-1.30)
== END | disposition home or self-care (01) ==
LOC: LAB 13:43
PROVIDERS: PCP Family Medicine
DX: K92.1 Melena (principal)
CPT/HCPCS: 36415; 80053; 85025; 86140

== ENCOUNTER → 2024-10-26 | Outpatient (CLI) | payer MEDICARE, MEDICAID, SELFPAY ==
[2024-10-29 08:08] LABS: Calprotectin, Stool 28 ug/g (0-120)
== END | disposition home or self-care (01) ==
LOC: LABSPEC 11:13
PROVIDERS: PCP Family Medicine
DX: K51.20 Ulcerative (chronic) proctitis without complications (principal); R19.7 Diarrhea, unspecified; K92.1 Melena
CPT/HCPCS: 83993

== ENCOUNTER 2024-11-10 07:22 | Day surgery (SDC) | payer MEDICARE, MEDICAID, SELFPAY ==
--- NOTE | 2024-11-08 13:12 | PAT.ANE_ITS ---
Pre-Assessment Diagnosis/Proposed Procedure Planned Operative Procedure(s): COLONOSCOPY Anesthesia History Anesthesia History - wrong address clerk: Anesthesia History - wrong address clerk Hx Hospitalization No 11/08/24 12:59 Any Problems With Anesthesia No 11/08/24 12:59 Cholinesterase deficiency No 11/08/24 12:59 You/Your Family Experience No 11/08/24 12:59 fever (hyperthermia) with Relationship Recent Exposure to Contagious Disease Does patient have nerve No 11/08/24 12:59 stimulator Patient instructed to have device shut off --Does patient have Pacemaker or ICD? When Was Last Pacemaker Check QUESTION #4 FULL TEXT: You/Your Family Experience fever (hyperthermia) with Anesthesia Last Oral Intake Last Oral intake: Last Oral Intake NPO since Meds taken in AM with sips of water? Meds patient instructed to take am of surgery PONV PONV - wrong address clerk: PONV - wrong address clerk Female Yes 11/08/24 12:59 HX of Motion Sickness Yes 11/08/24 12:59 HX of N/V After Surgery No 11/08/24 12:59 Non-Smoker Yes 11/08/24 12:59 Duration of Surgery greater No 11/08/24 12:59 than 60 minutes Number of Risk Factors 3 11/08/24 12:59 PONV Score Moderate Risk 11/08/24 12:59 Height & Weight Height & Weight: Anesthesia: Height & Weight Height 5 ft 10 in 10/19/24 12:59 Respiratory Assessment Respiratory Assessment - wrong address clerk: Respiratory Tract Infection Hx - wrong address clerk Hx Respiratory Tract Infection No 11/08/24 12:59 STOP Sleep Apnea STOP Sleep Apnea - wrong address clerk: STOP Sleep Apnea - wrong address clerk Hx Hypertension Yes 11/08/24 12:59 Hx Sleep Apnea No 11/08/24 12:59 CPAP BIPAP Do you snore loudly (louder No 11/08/24 12:59 than talking or can be heard Do you often feel tired/ No 11/08/24 12:59 fatigued/ sleepy during daytime? Has anyone observed you stop No 11/08/24 12:59 breathing during sleep? STOP Results Negative 11/08/24 12:59 QUESTION #5 FULL TEXT : Do you snore loudly (louder than talking or can be heard through closed doors)? Tobacco Use History Tobacco Use History - wrong address clerk: Tobacco Use History - wrong address clerk Tobacco Use Smoking Status Former smoker 11/08/24 12:59 Hx Tobacco Use Yes 11/08/24 12:59 Years Smoking Packs Smoked per Day Smoking Cessation Date was Yes - quit smoking within 15 11/08/24 12:59 within the last 15 years years Hx Smoking Cessation Date Hx Smoking Cessation Counseling Hematologic Medial History Hematologic Hx - wrong address clerk: Hematologic Medical Hx - manager reading Hx of Blood Transfusion No 11/08/24 12:59 Hx of Transfusion in last 3 No 11/08/24 12:59 Months Date of Last Transfusion (if within last 3 months) Ever experience any problems No 11/08/24 12:59 with transfusion(s)? Specify any problems Hx of Preganancy in last 3 No 11/08/24 12:59 Months Nurse Filling Out Transfusion VCHRISTIN 11/08/24 12:59 & Questions: Date: 11/08/24 11/08/24 12:59 Time: 13:01 11/08/24 12:59 Patient unable to answer at this time (ie. confused, unrespo /Reproduction History /Reproductive History - wrong address clerk: /Reproductive Hx- wrong address clerk Hx Now No 11/08/24 12:59 Gestational Age (in weeks): EDC: Hx Hx Para Hx Section SAB No 11/08/24 12:59 [facility] Medical History (Updated 11/08/24 @ 12:59 by Merari Easton) Wears hearing aid Wears glasses Schizophrenia Depression Anxiety Thyroid disease Back pain Panic attacks Former smoker Primary insomnia Leukocytosis GERD (gastroesophageal reflux disease) Elevated sed rate Elevated blood sugar Chronic midline low back pain Arthritis Abnormal sensation of lower extremity Ulcerative proctitis Anxiety Depression Hypothyroid Home Medications ?Medication ?Instructions ?Recorded ?Last Taken ?Type spironolactone 100 mg tablet 100 mg PO BID 10/06/18 Un known History (Aldactone) estradiol 2 mg tablet 2 mg PO BID 12/08/18 Unknown History carbamazepine 200 mg tablet 200 mg PO BID 10/15/24 Unk nown History estradiol 0.1 mg/24 hr semiweekly 1 patch transdermal 2XW 10/15/24 Unknown History transdermal patch finasteride 5 mg tablet 5 mg PO QDAY 10/15/24 Unknow n History folic acid 800 mcg tablet 0.8 mg PO QDAY 10/15/24 Unkn own History levothyroxine 112 mcg capsule 112 mcg PO MOTUWETHFRSA 10/15/24 Unknown History minoxidil 2.5 mg tablet 1.25 mg PO QDAY 10/15/24 Unk nown History omeprazole 40 mg capsule,delayed 40 mg PO BID 10/15/24 Unknown History release perphenazine 8 mg tablet 8 mg PO BID 10/15/24 Unknown History progesterone micronized 200 mg 100 mg PO QHS 10/15/24 Unknown History capsule trazodone 50 mg tablet 50 mg PO QHS 10/15/24 Unknow n History mesalamine 1.2 gram tablet,delayed 1.2 g PO QDAY #90 t abs 10/19/24 Unknown Rx release clindamycin phosphate 1 % topical 1 applic topical JONATHAN LY 11/08/24 Unknown History gel levothyroxine 175 mcg capsule 168 mcg PO DAILY 5 Unknown History melatonin 10 mg capsule 10 mg PO QHS 11/08/24 Unknow n History Allergy/AdvReac Type Severity Reaction Status Date / Time lactose Allergy Severe Diarrhea Verified 11/08/24 12:45 Surgical History (Updated 11/08/24 @ 12:59 by Merari Easton) Hx of colonoscopy H/O left wrist surgery Social History household members: family Smoking Status: Former smoker substance use type: does not use Audit: Pertinent Findings Pertinent Findings EKG Perinent findings: 12/22/2018. Sinus tach 103 bpm. Otherwise normal EKG. Recommendation Anesthesia Recommendation Anesthesia recommendation: OPTIMIZED for anesthesia
[2024-11-10] VITALS (8 sets, daily range): BP systolic 100–128; BP diastolic 38–62; PULSE 65–79; RESP 12–18; TEMP 35.9–36.9; O2SAT 96–100; BMI 43.3
--- NOTE | 2024-11-10 07:53 | PRE.ANES_ITS ---
ASA Classification* ASA Classification ASA Classification: 2 Assessment & Plan Anesthesia* Anesthesia Assessment Anesthesia Assessment: Discussed sedation and/or anesthesia options, risks, benefits, and alternatives with patient/parents/legal guardian/POA. Questions invited. The patient/parents/legal guardian/POA seems to understand and agrees to proceed with anesthesia plan. Reviewed the physical assessment, medical history, allergy history and patient home medications list prior to surgery/procedure/anesthetic and documented any changes. Performed airway and anesthesia risk assessments. Anesthesia Type Anesthesia Type: MAC Anesthesia Focused Assessment* Airway Assessment Mouth opens: >3 cm Mallampati Score: II Focused Labs Anesthesia Preop lab: CBC WBC 11.0 K/mm3 (4.4-11.0) 10/19/24 13:53 10/19/24 RBC 4.37 M/mm3 (4.2-5.4) 10/19/24 13:53 10/19/24 Hgb 13.8 g/dL (12.0-15.0) 10/19/24 13:53 10/19/24 Hct 41.1 % (37-47) 10/19/24 13:53 10/19/24 Plt Count 310 K/mm3 (150-450) 10/19/24 13:53 10/19/24 CHEMISTRY Potassium 3.9 mmol/L (3.3-5.1) 10/19/24 13:53 10/19/24 Sodium 136 mmol/L (133-145) 10/19/24 13:53 10/19/24 BUN 8 mg/dL (4-19) 10/19/24 13:53 10/19/24 Creatinine 0.88 mg/dL (0.70-1.20) 10/19/24 13:53 10/19/24 Glucose 95 mg/dL (70-99) 10/19/24 13:53 10/19/24 TSH 2.90 uIU/mL (0.358-3.74) 08/07/21 13:58 COAG Pre-Assessment Diagnosis/Proposed Procedure Planned Operative Procedure(s): COLONOSCOPY Anesthesia History Anesthesia History - university administrative assistant: Anesthesia History - university administrative assistant Hx Hospitalization No 11/08/24 12:59 Any Problems With Anesthesia No 11/08/24 12:59 Cholinesterase deficiency No 11/08/24 12:59 You/Your Family Experience No 11/08/24 12:59 fever (hyperthermia) with Relationship Recent Exposure to Contagious Disease Does patient have nerve No 11/08/24 12:59 stimulator Patient instructed to have device shut off --Does patient have Pacemaker or ICD? When Was Last Pacemaker Check QUESTION #4 FULL TEXT: You/Your Family Experience fever (hyperthermia) with Anesthesia Last Oral Intake Last Oral intake: Last Oral Intake NPO since Meds taken in AM with sips of water? Meds patient instructed to take am of surgery PONV PONV - university administrative assistant: PONV - university administrative assistant Female Yes 11/08/24 12:59 HX of Motion Sickness Yes 11/08/24 12:59 HX of N/V After Surgery No 11/08/24 12:59 Non-Smoker Yes 11/08/24 12:59 Duration of Surgery greater No 11/08/24 12:59 than 60 minutes Number of Risk Factors 3 11/08/24 12:59 PONV Score Moderate Risk 11/08/24 12:59 Height & Weight Height & Weight: Anesthesia: Height & Weight Height 5 ft 10 in 10/19/24 12:59 Respiratory Assessment Respiratory Assessment - university administrative assistant: Respiratory Tract Infection Hx - university administrative assistant Hx Respiratory Tract Infection No 11/08/24 12:59 STOP Sleep Apnea STOP Sleep Apnea - university administrative assistant: STOP Sleep Apnea - university administrative assistant Hx Hypertension Yes 11/08/24 12:59 Hx Sleep Apnea No 11/08/24 12:59 CPAP BIPAP Do you snore loudly (louder No 11/08/24 12:59 than talking or can be heard Do you often feel tired/ No 11/08/24 12:59 fatigued/ sleepy during daytime? Has anyone observed you stop No 11/08/24 12:59 breathing during sleep? STOP Results Negative 11/08/24 12:59 QUESTION #5 FULL TEXT : Do you snore loudly (louder than talking or can be heard through closed doors)? Tobacco Use History Tobacco Use History - university administrative assistant: Tobacco Use History - university administrative assistant Tobacco Use Smoking Status Former smoker 11/08/24 12:59 Hx Tobacco Use Yes 11/08/24 12:59 Years Smoking Packs Smoked per Day Smoking Cessation Date was Yes - quit smoking within 11/08/24 12:59 within the last 15 years years Hx Smoking Cessation Date Hx Smoking Cessation Counseling Hematologic Medial History Hematologic Hx - university administrative assistant: Hematologic Medical Hx - dental hygienist mobile coordinator Hx of Blood Transfusion No 11/08/24 12:59 Hx of Transfusion in last 3 No 11/08/24 12:59 Months Date of Last Transfusion (if within last 3 months) Ever experience any problems No 11/08/24 12:59 with transfusion(s)? Specify any problems Hx of Preganancy in last 3 No 11/08/24 12:59 Months Nurse Filling Out Transfusion VCHRISTIN 11/08/24 12:59 & Questions: Date: 11/08/24 11/08/24 12:59 Time: 13:01 11/08/24 12:59 Patient unable to answer at this time (ie. confused, unrespo /Reproduction History /Reproductive History - university administrative assistant: /Reproductive Hx- university administrative assistant Hx Now No 11/08/24 12:59 Gestational Age (in weeks): EDC: Hx Hx Para Hx Section SAB No 11/08/24 12:59 Active Medications Active Medications: Current Medications Generic Name Dose Route Start Last Admin Trade Name Freq PRN Reason Stop Dose Admin Lactated Ringer's 1,000 mls @ 15 mls/hr 11/10/24 07:45 IV .Q48H HOLLI PFSH Medical History Wears hearing aid Wears glasses Schizophrenia Depression Anxiety Thyroid disease Back pain Panic attacks Former smoker Primary insomnia Leukocytosis GERD (gastroesophageal reflux disease) Elevated sed rate Elevated blood sugar Chronic midline low back pain Arthritis Abnormal sensation of lower extremity Ulcerative proctitis Anxiety Depression Hypothyroid Home Medications ?Medication ?Instructions ?Recorded ?Last Taken ?Type spironolactone 100 mg tablet 100 mg PO BID 10/06/18 Un known History (Aldactone) estradiol 2 mg tablet 2 mg PO BID 12/08/18 Unknown History carbamazepine 200 mg tablet 200 mg PO BID 10/15/24 Unk nown History estradiol 0.1 mg/24 hr semiweekly 1 patch transdermal 2XW 10/15/24 Unknown History transdermal patch finasteride 5 mg tablet 5 mg PO QDAY 10/15/24 Unknow n History folic acid 800 mcg tablet 0.8 mg PO QDAY 10/15/24 Unkn own History levothyroxine 112 mcg capsule 112 mcg PO MOTUWETHFRSA 10/15/24 Unknown History minoxidil 2.5 mg tablet 1.25 mg PO QDAY 10/15/24 Unk nown History omeprazole 40 mg capsule,delayed 40 mg PO BID 10/15/24 Unknown History release perphenazine 8 mg tablet 8 mg PO BID 10/15/24 Unknown History progesterone micronized 200 mg 100 mg PO QHS 10/15/24 Unknown History capsule trazodone 50 mg tablet 50 mg PO QHS 10/15/24 Unknow n History mesalamine 1.2 gram tablet,delayed 1.2 g PO QDAY #90 t abs 10/19/24 Unknown Rx release clindamycin phosphate 1 % topical 1 applic topical JONATHAN LY 11/08/24 Unknown History gel levothyroxine 175 mcg capsule 168 mcg PO DAILY 5 Unknown History melatonin 10 mg capsule 10 mg PO QHS 11/08/24 Unknow n History Allergy/AdvReac Type Severity Reaction Status Date / Time lactose Allergy Severe Diarrhea Verified 11/08/24 12:45 Surgical History Hx of colonoscopy H/O left wrist surgery Social History household members: family Smoking Status: Former smoker substance use type: does not use Review of Systems (Anesthesia) ROS Narrative System reviewed and no additional complaints, except as documented.
[2024-11-10 08:08] LABS: Internal QC Validated? YES +Cl - CLEAR BKGD; Pregnancy, Urine Negative Negative
[2024-11-10] MEDS: Lactated Ringers 1,000 ML 15 ML IV (08:13)
--- NOTE | 2024-11-10 08:52 | HP.PCM_ITS ---
HPI - General General Date of Admission: 11/10/24 Date of Service: 11/24/24 Chief Complaint: Ulcerative Colitis HPI Narrative DEANDRA BUSBY, is a 34 F who presentsCATARYN BUSBY, is a 34 F who presents to the office today for establishment with [facility] for management of her ulcerative proctitis w/bleeding, accompanied by her mother. She had an [facility] ER visit 09.10.24-no imaging, Rx of mesalamine 1g RC QHS, mesalamine 1.5g PO QAM, NEG enteric/cdiff; last colonoscopy in 2019 by in [place]:no UC on pathology; 2012 c-scope at [facility]:ulcerative proctitis; former smoker. She reports watery stools up to 30x daily at times, but currently is having about 10 watery stools daily and sees bright blood a few times. She reports this is much better than last month. She reports that her only major surgery has been a plate in her left wrist. She states that she uses a hearing aid for her left ear and has had 2 colonoscopies. She denies problems with anesthesia. She reports having random gagging episodes previously and she takes omeprazole twice daily for this, which helps. She denies difficulty chewing and swallowing, cough, throat clearing, sinus drainage, nausea, heartburn, reflux, abdominal bloating, constipation, and melena. She reports drinking spring water and bottled water. She denies recent travel. She states known lactose intolerance. [facility] Medical History Wears hearing aid Wears glasses Schizophrenia Depression Anxiety Thyroid disease Back pain Panic attacks Former smoker Primary insomnia Leukocytosis GERD (gastroesophageal reflux disease) Elevated sed rate Elevated blood sugar Chronic midline low back pain Arthritis Abnormal sensation of lower extremity Ulcerative proctitis Anxiety Depression Hypothyroid Home Medications ?Medication ?Instructions ?Recorded ?Last Taken ?Type spironolactone 100 mg tablet 100 mg PO BID 10/06/18 Un known History (Aldactone) estradiol 2 mg tablet 2 mg PO BID 12/08/18 Unknown History carbamazepine 200 mg tablet 200 mg PO BID 10/15/24 Unk nown History estradiol 0.1 mg/24 hr semiweekly 1 patch transdermal 2XW 10/15/24 Unknown History transdermal patch finasteride 5 mg tablet 5 mg PO QDAY 10/15/24 04:45 History folic acid 800 mcg tablet 0.8 mg PO QDAY 10/15/24 Unkn own History levothyroxine 112 mcg capsule 112 mcg PO MOTUWETHFRSA 10/15/24 11/10/24 04:45 History minoxidil 2.5 mg tablet 1.25 mg PO QDAY 10/15/24 Unk nown History omeprazole 40 mg capsule,delayed 40 mg PO BID 10/15/24 11/10/24 04:45 History release perphenazine 8 mg tablet 8 mg PO BID 10/15/24 Unknown History progesterone micronized 200 mg 100 mg PO QHS 10/15/24 Unknown History capsule trazodone 50 mg tablet 50 mg PO QHS 10/15/24 Unknow n History mesalamine 1.2 gram tablet,delayed 1.2 g PO QDAY #90 t abs 10/19/24 Unknown Rx release clindamycin phosphate 1 % topical 1 applic topical JONATHAN LY 11/08/24 Unknown History gel levothyroxine 175 mcg capsule 168 mcg PO DAILY 5 Unknown History melatonin 10 mg capsule 10 mg PO QHS 11/08/24 Unknow n History Allergy/AdvReac Type Severity Reaction Status Date / Time lactose Allergy Severe Diarrhea Verified 11/10/24 08:08 Surgical History Hx of colonoscopy H/O left wrist surgery Social History household members: family Smoking Status: Former smoker substance use type: does not use ROS Constitutional Constitutional: Denies fatigue, fever(s), poor appetite, weight gain or weight loss Gastrointestinal Gastrointestinal: Denies belching, bloating, change in bowel habits, change in stool character, chewing difficulty, coffee ground emesis, constipation, cramping, diarrhea, dyspepsia, dysphagia, early satiety, excessive flatus, fecal incontinence, heartburn, hematemesis, hematochezia, hemorrhoids, loose stools, melena, nausea, odynophagia, rectal bleeding, tenesmus, vomiting or weight changes Vital Signs Vital Signs Vital Signs: 11/10/24 08:10 11/10/24 08:10 Temperature 98.4 F Temperature Source Temporal Pulse Rate 79 Respiratory Rate 18 Respiratory Pattern Normal Blood Pressure 128/61 H Blood Pressure Mean 83 Blood Pressure Source Monitor Blood Pressure Position Sitting Blood Pressure Location Left Arm Pulse Ox 98 Oxygen Delivery Method Room Air Weight Weight: 302 lb 0.533 oz Body Mass Index (BMI) 43.3 Physical Exam Const alert, oriented x3, no apparent distress and healthy appearing General Appearance: cooperative GI normal to inspection, nondistended, normoactive bowel sounds, soft to palpation, non-tender and non-distended Percussion: normal to percussion Rectal Exam: deferred Results Lab / Micro Data Labs: Laboratory Results - last 24 hr 11/10/24 07:40: Urine Test Negative Assessment & Plan Assessment/Plan (1) Hematochezia: (2) Diarrhea: QUALIFIERS: Diarrhea type: unspecified type Qualified Code(s): R19.7 - Diarrhea, unspecified (3) Ulcerative proctitis: QUALIFIERS: Digestive disease complication type: with rectal bleeding Qualified Code(s): K51.211 - Ulcerative (chronic) proctitis with rectal bleeding PLAN: Assessment and Plan Assessment and Plan (1) Ulcerative proctitis: Status: Acute Qualifiers: Digestive disease complication type: with rectal bleeding Qualified Code(s): K51.211 - Ulcerative (chronic) proctitis with rectal bleeding (2) Diarrhea: Status: Acute Qualifiers: Diarrhea type: unspecified type Qualified Code(s): R19.7 - Diarrhea, unspecified (3) Hematochezia: Status: Acute Orders: Orders Calprotectin, Stool Today K51.20 - Ulcerative (chronic) proctitis without complications, K92.1 - Melena, R19.7 - Diarrhea, unspecified CBC W/Diff, Automated Today K92.1 - Melena CRP Today K51.20 - Ulcerative (chronic) proctitis without complications, K92.1 - Melena, R19.7 - Diarrhea, unspecified Comprehensive Metabolic Profil Today K51.20 - Ulcerative (chronic) proctitis without complications, K92.1 - Melena, R19.7 - Diarrhea, unspecified Medications: New mesalamine 1.2 grams PO QDAY 90 tabs 1RF Discontinued mesalamine ER (Apriso) Discontinued Reason: Order Changed 1.5 grams (4 x 0.375 gram) PO DAILY 120 caps 0RF mesalamine (Canasa) Discontinued Reason: Order Completed 1 g VT QHS 30 ea 0RF Plan DEANDRA BUSBY, is a 34 F who presents to the office today for establishment with [facility] for management of her ulcerative proctitis w/bleeding, accompanied by her mother. Discussed area plan with her and her mother. * continue mesalamine 1.2gm PO QAM * stop mesalamine RS * stool for calprotectin * blood for cbc, cmp, crp * schedule colonoscopy * notify office of reoccurrence of increased BRBPR * office FU for results
--- NOTE | 2024-11-10 09:00 | COLBX_PTH ---
PATIENT: DEANDRA BUSBY LOC: EN U#:[id number] AGE/SX: 34/F ROOM: RE11/10/[address]: Dr. Masoud Harvey DO : 1990 BED: DIS: 11/10/2024 SPEC #: [id number] RECD: 11/10/24 11:59 STATUS: HEMANT REMarcy #: [id number] JAYLENE: 11/10/24 09:[address]: Masoud Harvey DEPT: SURGICAL PATHOLOGY RECD BY: Rocky Solo ENTERED: 11/10/24 13:18 SP TYPE: COLON BX KP DR: Dr. Jovan Krause MD Tissues: A - Ileum, NOS B - COLON BIOPSY C - COLON BIOPSY D - Rectum, NOS Procedures: Surgery Specimen Level IV HEADER OPERATION: Colonoscopy with biopsy PRE-OP DIAGNOSIS: Hematochezia, diarrhea TISSUE SUBMITTED: A- Terminal ileum biopsy, B- Right side colon biopsy, C- Left side colon biopsy,D- Rectum biopsy MICROSCOPIC DIAGNOSIS A. Small bowel, terminal ileum, biopsy: Normal villous architecture with prominent mucosal lymphoid aggregates, favor reactive. B. Colon, right side, biopsy: No specific pathologic change. C. Colon, left side, biopsy: No specific pathologic change. D. Rectum, biopsy: No specific pathologic change. MICROSCOPIC DESCRIPTION Slides are reviewed. GROSS DESCRIPTION A. Received in formalin in a container labeled with the patient's name, date of , and terminal ileum biopsy are multiple hope-pink fragments of mucosal tissue measuring 1.3 x 0.5 x 0.2 cm in aggregate. Submitted in toto in A1. B. Received in formalin in a container labeled with the patient's name, date of , and right side colon biopsy are multiple hope-pink fragments of mucosal tissue measuring 1.7 x 0.6 x 0.3 cm in aggregate. Submitted in toto in B1. C. Received in formalin in a container labeled with the patient's name, date of , and left side colon biopsy are multiple hope-pink fragments of mucosal tissue measuring 1.4 x 0.6 x 0.3 cm in aggregate. Submitted in toto in C1. D. Received in formalin in a container labeled with the patient's name, date of , and rectum biopsy are multiple hope-pink fragments of mucosal tissue measuring 1.2 x 0.4 x 0.2 cm in aggregate. Submitted in toto in D1. [facility] 11-10-2024 CPT:14486r9
--- NOTE | 2024-11-10 09:55 | OP.COLON_ITS ---
Patient Name: Abbey Lockwood Procedure Date: 11/10/2024 9:21 AM Date of : 1990 Age: 34 Procedure: Colonoscopy Indications: Chronic diarrhea, Clinically significant diarrhea of unexplained origin, Chronic ulcerative proctosigmoiditis Providers: Masoud Harvey DO Referring MD: Jovan Krause MD Medicines: Monitored Anesthesia Care Patient Profile: This is a 34 year old female. Refer to note in patient chart for documentation of history and physical. Last Colonoscopy: several years ago. Complications: No immediate complications. Procedure: Pre-Anesthesia Assessment: - Prior to the procedure, a History and Physical was performed, and patient medications and allergies were reviewed. The patient is competent. The risks and benefits of the procedure and the sedation options and risks were discussed with the patient. All questions were answered and informed consent was obtained. Patient identification and proposed procedure were verified by the physician in the pre-procedure area. Mental Status Examination: alert and oriented. Airway Examination: normal oropharyngeal airway and neck mobility. Respiratory Examination: clear to auscultation. CV Examination: normal. Prophylactic Antibiotics: The patient does not require prophylactic antibiotics. Prior Anticoagulants: The patient has taken no anticoagulant or antiplatelet agents. ASA Grade Assessment: II - A patient with mild systemic disease. After reviewing the risks and benefits, the patient was deemed in satisfactory condition to undergo the procedure. The anesthesia plan was to use moderate sedation / analgesia (conscious sedation). Immediately prior to administration of medications, the patient was re-assessed for adequacy to receive sedatives. The heart rate, respiratory rate, oxygen saturations, blood pressure, adequacy of pulmonary ventilation, and response to care were monitored throughout the procedure. The physical status of the patient was re-assessed after the procedure. After I obtained informed consent, the scope was passed under direct vision. Throughout the procedure, the patient's blood pressure, pulse, and oxygen saturations were monitored continuously. The colonoscope was introduced through the anus and advanced to the terminal ileum. The colonoscopy was performed without difficulty. The patient tolerated the procedure well. The quality of the bowel preparation was adequate. The terminal ileum, ileocecal valve, appendiceal orifice, and rectum were photographed. Scope In: 9:32:21 AM Scope Withdrawal Time 0 hours 9 minutes 2 seconds Scope Out: 9:46:39 AM Total Procedure Duration Time 0 hours 14 minutes 18 seconds Findings: The perianal and digital rectal examinations were normal. The colon (entire examined portion) appeared normal. Two biopsies were taken every 10 cm with a cold forceps from the entire colon. These biopsy specimens were sent to Pathology. Verification of patient identification for the specimen was done. Estimated blood loss was minimal. The terminal ileum appeared normal. Biopsies were taken with a cold forceps for histology. Verification of patient identification for the specimen was done. Estimated blood loss was minimal. Impression: - The entire examined colon is normal. Biopsied. - The examined portion of the ileum was normal. Biopsied. Recommendation: - Discharge patient to home. - Resume previous diet. - Continue present medications. - Await pathology results. - Repeat colonoscopy for surveillance based on pathology results. Procedure Code(s): --- Professional --- 13222, Colonoscopy, flexible; with biopsy, single or multiple CPT copyright 2021 [employer]. All rights reserved. The codes documented in this report are preliminary and upon trimmer meat review may be revised to meet current compliance requirements. Masoud Harvey DO 11/10/2024 9:55:24 AM This report has been signed electronically. Number of Addenda: 0 Note Initiated On: 11/10/2024 9:21 AM
--- NOTE | 2024-11-10 09:55 | PCM.POST.ANE ---
Anesthesia: Postop Eval I Current Vital Signs Temperature: 98.1 F Pulse Rate: 74 Blood Pressure: 100/51 Respiratory Rate: 16 Pulse Ox: 100 Oxygen Delivery Method: Room Air Assessment Airway patent: Yes Spontaneous unlabored respirations: Yes Mental status: Awake and Calm nausea: No Vomiting: No Anesthesia Complication: No Fluid Hydration Crystalloid volume administer (ml): 800 Total IV fluid infused: 800 Progress Note Anesthesia document: Postop Eval 1 completed: Yes
--- NOTE | 2024-11-10 09:56 | OP.CCLET_ITS ---
11/10/2024 Jovan Krause MD Re : Colonoscopy procedure for Abbey Lockwood Dear Dr. Krause This procedure was performed on Sunday, November 10, 2024. My impressions and recommendations are as follows: Impressions : - The entire examined colon is normal. Biopsied. - The examined portion of the ileum was normal. Biopsied. Recommendations : - Discharge patient to home. - Resume previous diet. - Continue present medications. - Await pathology results. - Repeat colonoscopy for surveillance based on pathology results. My findings are described in the full procedure note, which is enclosed. If I can be of further assistance, please feel free to contact me at . Sincerely, Masoud Harvey, 11/10/2024 9:55:24 AM This report has been signed electronically.
--- NOTE | 2024-11-10 11:36 | PCM.POSTANE2 ---
Anesthesia Postop Eval I Sum Postop Eval Completion status Anesthesia document: Postop Eval 1 completed: Yes Anesthesia Postop Eval I Summary Anesthesia Postop Eval I Summary: Anesthesia Postop Eval I: Assessment Summary Airway patent Yes 11/10/24 10:36 [email or web address] Spontaneous unlabored Yes 11/10/24 10:36 [email or web address] respirations Mental status Awake,Calm 11/10/24 10:36 [email or web address] nausea No 11/10/24 10:36 [email or web address] Vomiting No 11/10/24 10:36 [email or web address] Anesthesia Postop Eval I: Fluid Summary Crystalloid volume administer 800 11/10/24 10:36 [email or web address] (ml) Colloids volume administered ( ml) Blood Product volume administered (ml) Total IV fluid infused 800 11/10/24 10:36 [email or web address] Anesthesia Postop Eval I: Summary Notes Anesthesia Complication No 11/10/24 10:36 [email or web address] Anesthesia Complication Comment: Post-operative progress note Anesthesia: Postop Eval II Evaluation Mental status: Awake Pain Level: 0 nausea: No Vomiting: No
== END 2024-11-10 10:49 | disposition home or self-care (01) ==
LOC: EN 07:23 → AC 07:24
PROVIDERS: Anesthesiology; PCP Family Medicine; Referring Provider Family Medicine; Visit Provider Internal Medicine Gastroenterology
PROC: 0DJD8ZZ Inspection of Lower Intestinal Tract, Via Natural or Artificial Opening Endoscopic (ICD-10-PCS; CPT 45378; principal; 2024-11-10 08:55)
DX: K51.211 Ulcerative (chronic) proctitis with rectal bleeding (principal); F20.9 Schizophrenia, unspecified; Z87.891 Personal history of nicotine dependence; F41.0 Panic disorder [episodic paroxysmal anxiety]; K21.9 Gastro-esophageal reflux disease without esophagitis; E03.9 Hypothyroidism, unspecified; R19.7 Diarrhea, unspecified; E73.9 Lactose intolerance, unspecified
CPT/HCPCS: 45380; 81025; 88305; J2405

== ENCOUNTER → 2024-11-23 | Outpatient (CLI) | payer MEDICARE, MEDICAID, SELFPAY ==
[2024-11-23 13:56] LABS: Absolute Lymphocyte Count 1.96 X10^3/uL (0.83-4.51); Absolute Neutrophil Count 5.8 X10^3/uL (2.0-7.7); Basophil# 0.05 X10^3/uL; Basophil% 0.6 % (0-1); Eosinophil# 0.07 X10^3/uL; Eosinophils% 0.8 % (0-5); Hematocrit 39.6 % (37-47); Hemoglobin 13.5 g/dL (12.0-15.0); Lymphocyte # 1.96 X10^3/ul (0.83-4.51); Lymphocyte % 23.1 % (19-41); Mean Corp Hgb Conc 34.1 g/dL (32-36); Mean Corpuscular Hgb 31.3 pg (27.0-32.0); Mean Corpuscular Volume 91.7 fL (81-99); Mean Platelet Vol. 11.7 fl (6.2-12.0); Monocyte# 0.55 X10^3/uL; Monocyte% 6.5 % (0-10); NRBC Flagged by Analyzer 0 % (0-5); Neutrophil # 5.82 X10^3/uL (2.7-7.7); Neutrophil % 68.6 % (47-70); Platelet Count 304 K/mm3 (150-450); RBC Distribution Width CV 12.4 % (11.6-14.6); RBC Distribution Width SD 41.2 fl (35.1-43.9); Red Blood Count 4.32 M/mm3 (4.2-5.4); White Blood Count 8.5 K/mm3 (4.4-11.0)
[2024-11-23 15:08] LABS: CRP 4.07 mg/L (0.0-3.0)
[2024-11-23 15:22] LABS: ALB/GLOB Ratio 1.5 RATIO (0.9-2.4); AST(SGOT) 20 U/L (<=31); Alanine Aminotransfer ALT/SGPT 16 U/L (<=34); Albumin, Serum 4.4 g/dL (3.5-5.0); Alkaline Phosphatase 62 U/L (35-104); Anion Gap 11 (5-15); BUN 6 mg/dL (4-19); BUN/Creat Ratio 6.4 RATIO (10-20); Calcium,Total 9.3 mg/dL (7.6-11.0); Carbon Dioxide 23.8 mmol/L (21.0-32.0); Chloride 103 mmol/L (98-108); Creatinine, Serum 0.85 mg/dL (0.70-1.20); EST Glomerular Filtration Rate 92 (>60); Globulin 2.9 g/dL (2.2-4.2); Glucose 99 mg/dL (70-99); Potassium 3.9 mmol/L (3.3-5.1); Protein, Total 7.3 g/dL (5.9-8.4); Sodium Level 138 mmol/L (133-145); Total Bilirubin < 0.15 mg/dL (0.00-1.30)
== END | disposition home or self-care (01) ==
LOC: LAB 13:12
PROVIDERS: PCP Family Medicine
DX: R19.7 Diarrhea, unspecified (principal); K51.211 Ulcerative (chronic) proctitis with rectal bleeding
CPT/HCPCS: 36415; 80053; 85025; 86140

== ENCOUNTER → 2024-11-25 | Outpatient (CLI) | payer MEDICARE, MEDICAID, SELFPAY ==
[2024-11-29 16:08] LABS: Calprotectin, Stool 17 ug/g (0-120)
== END | disposition home or self-care (01) ==
LOC: LABSPEC 11:00
PROVIDERS: PCP Family Medicine
DX: K51.211 Ulcerative (chronic) proctitis with rectal bleeding (principal); R19.7 Diarrhea, unspecified
CPT/HCPCS: 83993